=== PATIENT | male | born 1960 | race Caucasian/White ===

== ENCOUNTER 2016-10-26 14:50 | Inpatient (IN) | payer BC ==
[2016-10-26] MEDS ORDERED: fentaNYL (PF) 50 MCG/ML 2 ML AMP IV ONE (15:00)
[2016-10-26] MEDS ORDERED: MIDAZOLAM 2 MG/2 ML VIAL IVP ONE (15:00)
[2016-10-26] MEDS ORDERED: LIDOCAINE 2% INJ 20 MG/ML SQ ONE (15:03)
[2016-10-26] MEDS ORDERED: SODIUM CHLORIDE 0.9% 500 ML IV ONE (15:07)
[2016-10-26] MEDS ORDERED: PRASUGREL 10 MG TAB ONE (15:10)
[2016-10-26] MEDS ORDERED: PRASUGREL 10 MG TAB PO ONE (15:11)
[2016-10-26] MEDS ORDERED: TIROFIBAN BOLUS 12.5MG/250 ML BAG IV ONE (15:20)
[2016-10-26] MEDS: HEPARIN SODIUM 1,000 UNIT/ML VIAL IV ONE ×3 (15:21→16:04)
[2016-10-26] MEDS ORDERED: TIROFIBAN 12.5MG-250ML NS 250 ML IV ONE (15:22)
[2016-10-26] MEDS ORDERED: niCARdipine 25 MG/10 ML VIAL ONE (15:38)
[2016-10-26] MEDS ORDERED: SODIUM CHLORIDE 0.9% (PF) 10 ML VIAL ONE (15:38)
[2016-10-26] MEDS ORDERED: niCARdipine Syringe (1,000 mcg/10 mL) INTRACORON ONE (15:40)
[2016-10-26] MEDS: NITROGLYCERIN 1000MCG/10ML SYRINGE INTRACORON ONE ×2 (15:48→15:56)
[2016-10-26] MEDS ORDERED: HYDROmorphone 2 MG/ML 1 ML SYRINGE ONE (16:02)
[2016-10-26] MEDS ORDERED: HYDROmorphone 2 MG/ML 1 ML SYRINGE IVP ONE (16:04)
[2016-10-26] MEDS ORDERED: IOHEXOL 350 MG/ML 100 ML BOTTLE INJ ONE (16:06)
[2016-10-26] MEDS ORDERED: ZOLPIDEM 5 MG TAB PO PRN (16:13)
[2016-10-26] MEDS ORDERED: RX INFO: IV CONTRAST WAS GIVEN 1 EACH MISC MISCELLANE PRN (16:13)
[2016-10-26] MEDS ORDERED: NITROGLYCERIN SL TABS 0.4 MG TAB SUBLINGUAL PRN (16:13)
[2016-10-26] MEDS ORDERED: ATROPINE SULFATE 0.1 MG/ML 10ML SYRINGE IV PRN (16:13)
[2016-10-26] MEDS ORDERED: MAG HYDROX/AL HYDROX/SIMETH 30 ML CUP PO PRN (16:13)
[2016-10-26] MEDS ORDERED: TIROFIBAN 12.5MG-250ML NS 250 ML IV SCH (16:30)
[2016-10-26 16:53] LABS: Glucose,Whole Blood 261 mg/dL (75-99)
[2016-10-26] MEDS: SODIUM CHLORIDE 0.9% 1,000 ML IV SCH (17:13)
[2016-10-26] MEDS: METOPROLOL TARTRATE 25 MG TAB PO SCH (17:38)
[2016-10-26 18:17] LABS: Basophils # (A) 0.1 k/uL (0-0.2); Basophils % (A) 0 %; CH 29.3; CHCM 33.8; Eosinophils % (A) 0 %; HCT 35.8 % (39.0-53.0); HGB 11.5 gm/dL (13.0-17.5); Luc # (Auto) 0.19; Luc % (Auto) 1; Lymphocytes # (A) 3.1 k/uL (1.0-4.8); Lymphocytes % (A) 18 %; MCHC 32.1 g/dL (31.0-37.0); MCV 87.2 fL (80.0-100.0); Monocytes # (A) 0.8 k/uL (0-1.0); Monocytes % (A) 5 %; Neutrophils % (A) 76 %; RDW 13.2 % (11.5-15.5); WBC 17.2 k/uL (3.8-10.6)
[2016-10-26] MEDS: INSULIN LISPRO (humaLOG) 300 UNIT/3 ML VIAL SQ SCH ×2 (18:37→20:16)
[2016-10-26 18:44] LABS: Blood Urea Nitrogen 14 mg/dL (9-20); Carbon Dioxide 20 mmol/L (22-30); Chloride 102 mmol/L (98-107)
[2016-10-26 19:14] LABS: ALT 135 U/L (21-72); Alkaline Phosphatase 58 U/L (38-126); Anion Gap 14 mmol/L; Calcium 8.9 mg/dL (8.4-10.2); Glucose 243 mg/dL (74-99); Magnesium 1.7 mg/dL (1.6-2.3); Non-African American GFR(MDRD) >60 (>60 ml/min/1.73 sqM); Potassium 4.7 mmol/L (3.5-5.1); Sodium 136 mmol/L (137-145); Total Bilirubin 0.6 mg/dL (0.2-1.3); Total Protein 7.5 g/dL (6.3-8.2)
[2016-10-26 19:19] LABS: INR 1.1 (<1.1); Partial Thromboplastin Time 79.6 sec (22.0-30.0); Prothrombin Time 10.8 sec (9.0-12.0)
[2016-10-26 19:27] LABS: AST 750 U/L (17-59)
--- NOTE | 2016-10-26 20:12 | HP ---
DATE OF ADMISSION: 10/26/2016 PRESENTING COMPLAINT: Chest pain. HISTORY OF PRESENTING COMPLAINT: This is a 56-year-old patient of Dr. Villasenor whose chronic stable conditions include hypertension, hyperlipidemia, diabetes mellitus type 2. The patient was outside fixing a tire when he started having chest pressure going to both his shoulders, started perspiring, dizzy, lightheaded, tired, then did feeling like heaving his lunch and decided to drive himself to the ER. Patient was found to have an ST elevation myocardial infarction, transferred to cardiac cath lab technologist. Patient had a stent placed to the LAD. REVIEW OF SYSTEMS: CONSTITUTIONAL: Tired. HEENT: None. RESPIRATORY: Occasional wheezing. CARDIOVASCULAR: As above. GASTROINTESTINAL: None. GENITOURINARY: None. MUSCULOSKELETAL: None. DERMATOLOGIC: None. HEMATOLOGIC: None. LYMPHATIC: None. PSYCHIATRY: None. NEUROLOGICAL: None. Past history of diabetes mellitus type 2, hypertension, hyperlipidemia. PAST SURGICAL HISTORY: None. SOCIAL HISTORY: Smokes a pack a day. 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 . FAMILY HISTORY: Both brother and father have coronary artery disease. HOME MEDICATIONS: 1. Janumet , 1 tablet p.o. b.i.d. 2. DiaBeta 5 mg at supper. 3. Zocor 20 mg q.h.s. 4. Prinivil 10 mg at supper. ALLERGIES: None. On examination, temperature 97.8, pulse 89, respiration 18, blood pressure 103/49, pulse ox 99% on 3L. GENERAL APPEARANCE: Elderly male, lying in bed, comfortable. EYES: Pupils equal. Conjunctivae normal. HEENT: Oral cavity normal. NECK: JVD not raised. Mass not palpable. RESPIRATORY: Effort normal. LUNGS: Slightly decreased breath sounds. CARDIOVASCULAR: First and second sounds normal. No edema. ABDOMEN: Soft, nontender. Liver and spleen not palpable. LYMPHATIC: No lymph node palpable in neck or axillae. PSYCHIATRY: Alert and oriented x3. Mood and affect normal. NEUROLOGICAL: Pupils equal. Cranial nerves grossly intact. Power and sensation grossly intact. Patient has a pressure in the right groin. INVESTIGATIONS: White count 7.2, hemoglobin 9.5. Accu-Chek 261. ASSESSMENT: 1. Acute ST elevation myocardial infarction in the anterior wall with emergent cardiac catheterization and stent to the left anterior descending artery. 2. Diabetes mellitus type 2 on oral hypoglycemic. 3. Essential hypertension. 4. Hyperlipidemia. 5. Nicotine dependence. Patient is a smoker. 6. Probable emphysema on clinical examination. PLAN: Patient's metformin will be held because of the IV contrast. Patient is otherwise on Aggrastat and Effient. Accu-Cheks will be followed with sliding scale insulin. Patient will be given a nicotine patch. Patient also on Lipitor and aspirin. Care was discussed with patient and his . Questions were answered.
[2016-10-26] MEDS: MAGNESIUM SULFATE-D5W PMX 1 GM in DEXTROSE/WATER 1 100ML.BAG IVPB SCH ×2 (20:34→22:16)
[2016-10-26 20:35] LABS: Glucose,Whole Blood 229 mg/dL (75-99)
[2016-10-26] MEDS ORDERED: LISINOPRIL 2.5 MG TAB PO SCH (21:00)
[2016-10-26] MEDS ORDERED: INSULIN LISPRO (humaLOG) 300 UNIT/3 ML VIAL SQ SCH (21:00)
[2016-10-26] MEDS ORDERED: ATORVASTATIN 80 MG TAB PO SCH (21:00)
[2016-10-26] MEDS: NICOTINE 21MG/24HR PATCH TRANSDERM SCH (21:11)
[2016-10-26] MEDS ORDERED: HYDROmorphone 1 MG/ML 1 ML SYRINGE IVP PRN (21:47)
[2016-10-27] MEDS: traMADol 50 MG TAB PO PRN ×3 (01:13→13:46)
[2016-10-27 04:41] LABS: Basophils % (A) 0 %; CH 28.5; CHCM 32.9; Eosinophils % (A) 0 %; HCT 32.4 % (39.0-53.0); HDW 2.43; HGB 10.6 gm/dL (13.0-17.5); Luc # (Auto) 0.21; Luc % (Auto) 2; Lymphocytes # (A) 2.6 k/uL (1.0-4.8); Lymphocytes % (A) 20 %; MCH 28.6 pg (25.0-35.0); MCHC 32.7 g/dL (31.0-37.0); MCV 87.3 fL (80.0-100.0); Monocytes # (A) 0.8 k/uL (0-1.0); Monocytes % (A) 6 %; Neutrophils # (A) 9.5 k/uL (1.3-7.7); Neutrophils % (A) 72 %; RBC 3.71 m/uL (4.30-5.90); RDW 13.2 % (11.5-15.5); WBC 13.2 k/uL (3.8-10.6); WBC (Perox) 13.83
[2016-10-27 04:50] LABS: ALT 117 U/L (21-72); AST 574 U/L (17-59); Alkaline Phosphatase 47 U/L (38-126); Anion Gap 7 mmol/L; Blood Urea Nitrogen 15 mg/dL (9-20); Carbon Dioxide 21 mmol/L (22-30); Chloride 103 mmol/L (98-107); Cholesterol 149 mg/dL (<200); Glucose 257 mg/dL (74-99); HDL Cholesterol 47 mg/dL (40-60); Magnesium 2.2 mg/dL (1.6-2.3); Non-African American GFR(MDRD) >60 (>60 ml/min/1.73 sqM); Potassium 4.9 mmol/L (3.5-5.1); Sodium 131 mmol/L (137-145); Total Bilirubin 0.5 mg/dL (0.2-1.3); Total Protein 6.1 g/dL (6.3-8.2); Triglycerides 80 mg/dL (<150)
[2016-10-27] MEDS: SODIUM CHLORIDE 0.9% 1,000 ML IV SCH (07:04)
[2016-10-27 07:28] LABS: Glucose,Whole Blood 256 mg/dL (75-99)
[2016-10-27] MEDS: INSULIN LISPRO (humaLOG) 300 UNIT/3 ML VIAL SQ SCH ×4 (07:58→20:45)
[2016-10-27] MEDS: METOPROLOL TARTRATE 25 MG TAB PO SCH (08:24)
[2016-10-27 08:25] LABS: Hemoglobin A1C 8.9 % (4.2-6.1)
--- NOTE | 2016-10-27 08:32 | CONS ---
DATE OF CONSULTATION: Mr. Ashton is a 56-year-old gentleman who was transferred from [facility] because of the EKG suggestive of acute anterior wall myocardial infarction. Patient presented to the emergency room at [facility] with a complaint of chest discomfort and tightness for about 30 minutes prior to coming to the hospital. Patient denied any significant shortness of breath. He says both arms felt heavy. He did not have any nausea or vomiting. Patient denies any prior history of angina. Patient has a history of high blood pressure, diabetes as well as hyperlipidemia. He is moderately active physically. There is no family history of premature coronary artery disease. PAST MEDICAL HISTORY: No history of any major surgeries. REVIEW OF SYSTEMS: Unremarkable. There is no history of any gastrointestinal bleeding or any blood in the stool, black stool or ulcer. Patient's medications include Janumet, lisinopril and simvastatin. ALLERGIES: None known. Physical examination at present reveals a 56-year-old gentleman who is having mild discomfort. The heart rate is 80 per minute. Blood pressure is 136/85 mmHg. HEENT examination is negative. Neck is supple. There is no increase in jugular venous pressure. Both the carotid pulses are felt. There is no bruit. Chest is symmetrical. HEART: The PMI is not felt. First and second heart sounds are normal. There is no evidence of any murmur. Lungs are clinically clear to auscultation and percussion. Abdomen is soft. Liver and spleen are not enlarged. EXTREMITIES: Peripheral pulsations are 2+. EKG is suggestive of acute extensive anterolateral myocardial infarction. FINAL IMPRESSION: This patient has presented with acute anterolateral myocardial infarction. Patient has a history of hypertension, diabetes as well as hyperlipidemia and smoking. RECOMMENDATIONS: We will proceed with primary angioplasty. The procedure and risks were fully explained to the patient and he understands well.
--- NOTE | 2016-10-27 08:36 | CC ---
DATE OF SERVICE: PREOPERATIVE DIAGNOSIS: Acute anterolateral myocardial infarction. POSTOPERATIVE DIAGNOSIS: Acute anterolateral myocardial infarction. PROCEDURE: The right groin was prepped and draped in the usual manner and the skin was infiltrated with 2% Xylocaine. The patient was given intravenous sedation with Versed and fentanyl. Right femoral artery was entered using Seldinger technique. A #6 Lithuanian sheath was placed in, then selective coronary angiography was performed in multiple projections and left ventricular pressures were obtained. Total sedation time is 20 minutes. HEMODYNAMICS: Left ventricular end-diastolic pressure was 24 mmHg prior to angiography. No gradient was noted across the aortic valve. SELECTIVE CORONARY ANGIOGRAPHY: Left main coronary artery is normal and patent. LAD is a good caliber blood vessel and mid LAD after the origin of 2 septal perforators is subtotally occluded with SHAHRIAR 2 flow noted in the distal LAD and diagonal branch. There is evidence of filling defect suggestive of thrombus. Circumflex coronary artery is diffusely diseased. The first obtuse marginal branch has distally 90% stenosis. Right coronary artery also has mild diffuse areas and ectatic without any hemodynamically significant stenosis. FINAL IMPRESSION: This study shows subtotal occlusion of the mid LAD with a SHAHRIAR 2 flow. There is evidence significant thrombus in the mid LAD. The obtuse marginal branch has 90% stenosis. The right coronary artery is diffusely diseased and is mildly ectatic. RECOMMENDATIONS: We will proceed with stent to the LAD.
[2016-10-27] MEDS: ASPIRIN 81 MG CHEW PO SCH (08:39)
[2016-10-27] MEDS: LINAGLIPTIN 5 MG TABLET PO SCH (08:39)
[2016-10-27] MEDS: PRASUGREL 10 MG TAB PO SCH (08:39)
[2016-10-27] MEDS: NICOTINE 21MG/24HR PATCH TRANSDERM SCH (08:39)
--- NOTE | 2016-10-27 09:11 | PTCA ---
DATE OF SERVICE: 10/26/2016 PROCEDURE: PTCA and stenting of mid LAD performed in the setting of an acute ST elevation [place] as a primary procedure. PERFORMED BY: Dr. Meagan Rios. CLINICAL INFORMATION: Mr. Ross Ashton is a 56-year-old gentleman with history of type 2 diabetes mellitus, smoking, hypertension, hypercholesterolemia, presented with an acute anterior [place] to [facility], was transferred to [facility] evaluated by Dr. Dc Marlow who performed the cardiac cath which revealed total occlusion of mid LAD with a lot of thrombus and a sluggish flow in the diagonal and LAD beyond the blockage. He also had a significant lesion in the circumflex marginal but RCA was free of significant disease. RCA was free of significant disease and a bit ectatic. He was advised intervention of the LAD that was performed expeditiously. PROCEDURE NOTE: Existing 6 Amharic introducer in the right femoral artery was used to perform the procedure. I used a standard left Nany catheter to cannulate the left coronary artery. A BMW wire was used to cross the lesion. Wire was kept in the distal LAD. Another BMW wire was advanced and positioned in the major diagonal branch beyond blockage. Predilatation was performed using a 2.5 caliber, 15 mm long NC trek balloon. I then deployed a 2.75 caliber, 12 mm long Xience stent and the distal end of the stent was just before the vessel bifurcated into the diagonal and continued as LAD. Excellent angiographic result was achieved. Unfortunately, the distal LAD towards the apex was totally occluded and the diagonal was diffusely diseased and there was another secondary branch that went laterally. I advanced the diagonal wire into secondary branch, and tried to dilate the diagonal branch, which was running laterally. I also gave a distal diagonal branch inflation as well. I also dilated the distal LAD at the site of total occlusion with a 2.25 caliber, 12 mm long NC Euphora balloon. Will all the inflations, patient's chest pain was relieved completely. Flow was brisk, but the distal LAD towards the apex remained occluded and the flow in the diagonal was good but there diffuse disease in the distal branches. Patient was free of chest pain; however, unfortunately ST segment elevation in the V2 to V6 as well as and I and aVL persisted. Patient remained hemodynamically stable. A good angiographic result was achieved. He received 60 mg of Effient. He received Aggrastat bolus and infusion as per protocol. The sheath was taken out and a Perclose device used to secure hemostasis and because of some oozing FemoStop was applied and he was sent to the room in stable condition. Results were discussed with the patient and family.
--- NOTE | 2016-10-27 09:13 | LTR ---
October 26, 2016 RE: Ross Ashton [place] Dear Dr. Reeves: Thank you for the opportunity to participate in the care of Mr. Ross Ashton. This gentleman presented with acute anterior [place], underwent stenting of mid LAD, which was totally occluded with clot. He has diffuse disease in other vessels as well. Specifically, circumflex has a significant circumflex marginal lesion. I expect that he will have some damage but overall an excellent angiographic result was achieved without complication. Thank you for your referral. Please call for questions. Sincerely, RIA MELENDEZ MD
--- NOTE | 2016-10-27 11:18 | US ---
EXAMINATION TYPE: US carotid duplex BILAT DATE OF EXAM: 10/27/2016 10:50 AM COMPARISON: NONE CLINICAL HISTORY: carotid Bruit. Chest pain, SOB EXAM MEASUREMENTS: RIGHT: Peak Systolic Velocity (PSV) cm/sec ----- Right CCA: 110.4 ----- Right ICA: 132.3 ----- Right ECA: 138.7 ICA/CCA ratio: 1.2 RIGHT: End Diastole cm/sec ----- Right CCA: 26.0 ----- Right ICA: 37.0 ----- Right ECA: 14.4 LEFT: Peak Systolic Velocity (PSV) cm/sec ----- Left CCA: 116.1 ----- Left ICA: 145.7 ----- Left ECA: 108.2 ICA/CCA ratio: 1.3 LEFT: End Diastole cm/sec ----- Left CCA: 25.7 ----- Left ICA: 37.3 ----- Left ECA: 13.6 VERTEBRALS (direction of flow): Right Vertebral: Antegrade Left Vertebral: Antegrade TECHNOLOGIST IMPRESSION: Mild to moderate plaque noted bilateral bifurcations. Mildly increased [place] bilateral ICA's and right ECA Grayscale, color Doppler, spectral Doppler imaging performed of the carotid arteries. IMPRESSION: No hemodynamic significant stenosis of the proximal internal carotid arteries bilaterall y by Doppler criteria, and indirect measurement of carotid stenosis. Mild elevation of the proximal i nternal carotid artery velocities without elevation in the ICA to CCA ratio. Follow-up, consider hooper tid CTA as indicated. Criteria for Assigning % of Stenosis / Diameter reduction (Estimation based on the indirect measurements of the internal carotid artery velocities (ICA PSV). 1. Normal (no stenosis)=ICA PSV < 125 cm/s: ratio < 2.0: ICA EDV<40 cm/s. 2. Less than 50% stenosis=ICA PSV < 125 cm/s: ratio < 2.0: ICA EDV<40 cm/s. 3. 50 to 69% stenosis=ICA PSV of 125 to 230 cm/s: ration 2.0 ? 4.0: ICA EDV 40-100 cm/s. 4. Greater than 70% stenosis to near occlusion= ICA PSV > 230 cm/s: ratio > 4.0: ICA EDV > 100 cm/s. 5. Near occlusion= ICA PSV velocities may be low or undetectable: variable ratio and ICA EDV. 6. Total occlusion=unable to detect flow.
--- NOTE | 2016-10-27 11:53 | PN ---
This gentleman was admitted yesterday through the emergency room from [facility]. He presented with an acute anterior wall [place], underwent stenting of LAD with diffuse disease in both LAD and diagonal beyond the total occlusion, which was opened with an excellent result. He is comfortable, resting. Denies any chest pain, hemodynamically stable. The right groin is clean and dry. Blood pressure was somewhat low earlier today. Urine output is good. Physical exam revealed blood pressure 98/60, pulse rate is 70 per minute. S1, S2 heard normally. Bilateral carotid bruits are audible. Short systolic murmur at the left sternal border is audible. Lungs are clear. Abdomen and lower extremity exam is unchanged. Right groin is clean and dry with a good pulse. IMPRESSION: 1. Acute anterior wall myocardial infarction status post PCI doing well, hemodynamically stable. 2. History of hypertension. 3. Type 2 diabetes mellitus. 4. History of hypercholesterolemia. RECOMMENDATIONS: I am recommending that we cut down the lisinopril dose to 2.5 mg at bedtime, obtain an echocardiogram and carotid Doppler tomorrow, his liver functions are elevated, has history of hepatitis C, will seek GI input. Will decrease the dose of beta nixon, cut down the dose of Lipitor in the light of elevated liver functions, increase activity and move him to telemetry tomorrow. Echo, carotid Doppler, GI evaluation, increase activity, reduction in dose of beta nixon, Lipitor and lisinopril was advised. Discussed with the patient and at length.
[2016-10-27 12:06] LABS: Glucose,Whole Blood 320 mg/dL (75-99)
[2016-10-27] MEDS: METOPROLOL TARTRATE 12.5 MG TAB PO SCH (13:42)
[2016-10-27] MEDS ORDERED: PRASUGREL 10 MG TAB PO SCH (16:15)
[2016-10-27] MEDS: glipiZIDE 5 MG TAB PO SCH (17:26)
[2016-10-27 17:29] LABS: Glucose,Whole Blood 262 mg/dL (75-99)
[2016-10-27 20:45] LABS: Glucose,Whole Blood 226 mg/dL (75-99)
[2016-10-27] MEDS: LISINOPRIL 2.5 MG TAB PO SCH (20:45)
[2016-10-27] MEDS: ATORVASTATIN 40 MG TAB PO SCH (20:45)
[2016-10-28 04:46] LABS: Basophils # (A) 0.1 k/uL (0-0.2); Basophils % (A) 1 %; CH 28.8; CHCM 32.7; Eosinophils # (A) 0.1 k/uL (0-0.7); Eosinophils % (A) 1 %; HCT 30.3 % (39.0-53.0); HDW 2.46; HGB 9.7 gm/dL (13.0-17.5); Luc # (Auto) 0.23; Luc % (Auto) 2; Lymphocytes # (A) 3.6 k/uL (1.0-4.8); Lymphocytes % (A) 31 %; MCH 28.5 pg (25.0-35.0); MCHC 32.1 g/dL (31.0-37.0); MCV 88.6 fL (80.0-100.0); Mean Platelet Volume 8.2; Monocytes # (A) 0.9 k/uL (0-1.0); Monocytes % (A) 7 %; Neutrophils # (A) 6.7 k/uL (1.3-7.7); Neutrophils % (A) 58 %; RBC 3.42 m/uL (4.30-5.90); RDW 13.3 % (11.5-15.5); WBC 11.6 k/uL (3.8-10.6); WBC (Perox) 11.45
[2016-10-28 04:57] LABS: ALT 85 U/L (21-72); AST 200 U/L (17-59); Alkaline Phosphatase 40 U/L (38-126); Anion Gap 7 mmol/L; Blood Urea Nitrogen 13 mg/dL (9-20); Calcium 8.5 mg/dL (8.4-10.2); Carbon Dioxide 25 mmol/L (22-30); Chloride 106 mmol/L (98-107); Glucose 156 mg/dL (74-99); Magnesium 2.1 mg/dL (1.6-2.3); Non-African American GFR(MDRD) >60 (>60 ml/min/1.73 sqM); Potassium 5.2 mmol/L (3.5-5.1); Sodium 138 mmol/L (137-145); Total Bilirubin 0.5 mg/dL (0.2-1.3)
[2016-10-28 06:38] LABS: Glucose,Whole Blood 201 mg/dL (75-99)
[2016-10-28] MEDS: glipiZIDE 5 MG TAB PO SCH (06:57)
[2016-10-28] MEDS: INSULIN LISPRO (humaLOG) 300 UNIT/3 ML VIAL SQ SCH ×4 (06:57→22:50)
[2016-10-28] MEDS ORDERED: metFORMIN 500 MG TAB PO SCH ×2 (07:30→17:30)
[2016-10-28] MEDS: NICOTINE 21MG/24HR PATCH TRANSDERM SCH ×2 (08:23→08:26)
[2016-10-28] MEDS: ASPIRIN 81 MG CHEW PO SCH (08:26)
[2016-10-28] MEDS: LINAGLIPTIN 5 MG TABLET PO SCH (08:27)
[2016-10-28] MEDS: PRASUGREL 10 MG TAB PO SCH (08:28)
--- NOTE | 2016-10-28 10:04 | ECHOF ---
Referral Reason:post stemi MEASUREMENTS -------- HEIGHT: 152.4 cm WEIGHT: 69.0 kg BP: 90/67 IVSd: 1.2 cm (0.6 - 1.1) LVIDd: 4.5 cm (3.9 - 5.3) LVPWd: 1.3 cm (0.6 - 1.1) IVSs: 1.7 cm LVIDs: 3.3 cm LVPWs: 1.6 cm LA Diam: 2.5 cm (2.7 - 3.8) LAESV Index (A-L): 26.88 ml/m Ao Diam: 3.1 cm (2.0 - 3.7) AV Cusp: 1.6 cm (1.5 - 2.6) LA Diam: 3.2 cm (2.7 - 3.8) MV EXCURSION: 26.725 mm (> 18.000) MV EF SLOPE: 87 mm/s (70 - 150) EPSS: 0.2 cm RAP: 5.00 mmHg RVSP: 31.89 mmHg FINDINGS -------- Sinus rhythm. This was a technically adequate study. There is mild concentric left ventricular hypertrophy. Overall left ventricular systolic function is moderately impaired with, an EF between 35 - 40 %. Apical lateral LV wall motion is hypokinetic. Anterseptal Hypokinesis [place] Hypokinesis. Distal Septal Hypokinesis. The right ventricle is normal in size. Normal LA size by volume 22+/-6 ml/m2. The right atrial size is normal. There is mild aortic valve sclerosis. There is no evidence of aortic regurgitation. Mild mitral annular calcification present. Mild mitral regurgitation is present. Mild tricuspid regurgitation present. There is no evidence of pulmonary hypertension. The right ventricular systolic pressure, as measured by Doppler, is 31.89mmHg. There is no pulmonic regurgitation present. The aortic root size is normal. There is no pericardial effusion. CONCLUSIONS -------- 1. There is mild concentric left ventricular hypertrophy. 2. Mild mitral regurgitation is present. 3. Mild tricuspid regurgitation present. 4. There is no evidence of pulmonary hypertension. 5. The right ventricular systolic pressure, as measured by Doppler, is 31.89mmHg. 6. Overall left ventricular systolic function is moderately impaired with, an EF between 35 - 40 %. 7. Apical lateral LV wall motion is hypokinetic. 8. Anterseptal Hypokinesis 9. [place] Hypokinesis. 10. Distal Septal Hypokinesis. 11. Normal LA size by volume 22+/-6 ml/m2. 12. There is mild aortic valve sclerosis. 13. Mild mitral annular calcification present. PAPER BAG PRESS OPERATOR: Oneyda Dorsey RDCS
--- NOTE | 2016-10-28 11:15 | PN ---
DATE OF SERVICE: 10/27/2016 PRESENTING COMPLAINT: Acute [place]. INTERVAL HISTORY: This patient presented with acute ST elevation myocardial infarction with intervention of the LAD. Has been out of bed. Had very slight chest discomfort. Discussed with Dr. Meagan Rios. The patient had a good intervention from intervention standpoint. Review of systems done for constitutional, cardiovascular, GI, pulmonary; relevant findings as above. Current medications are reviewed. On examination, temperature 98.1, pulse 84, respiration 23, blood pressure 113/58, pulse ox 99% on room air. GENERAL APPEARANCE: Lying in bed, comfortable. EYES: Pupils equal. Affect normal JVD not raised. Mass not palpable. RESPIRATORY: Effort normal. LUNGS: Diminished breath sounds. CARDIOVASCULAR: First and second sounds normal. No edema. ABDOMEN: Soft, nontender. Liver and spleen not palpable. PSYCHIATRY: Alert and oriented or 3. Mood and affect normal. INVESTIGATIONS: White count 13.2, hemoglobin 10.6, potassium 4.9, sodium 131. Accu-Cheks 257 and 256. Carotid Doppler, no critical stenosis ASSESSMENT: 1. Acute ST elevation myocardial infarction of the anterior wall with emergent cardiac catheterization with stent to the LAD. 2. Diabetes mellitus type 2, on oral hypoglycemic, uncontrolled. 3. Essential hypertension. 4. Hyperlipidemia. 5. Nicotine dependence. Patient is a smoker. 6. Probable emphysema on clinical examination. PLAN: Checked with the nurse, oral hypoglycemic was not started, will be started today. Metformin can be started tomorrow. In the meantime will keep the patient on sliding scale. Discussed with the patient.
[2016-10-28 11:38] LABS: Glucose,Whole Blood 195 mg/dL (75-99)
[2016-10-28] MEDS: METOPROLOL TARTRATE 12.5 MG TAB PO SCH ×2 (12:15→12:28)
[2016-10-28] MEDS: LISINOPRIL 2.5 MG TAB PO SCH (12:35)
[2016-10-28] MEDS: SPIRONOLACTONE 25 MG TAB PO SCH (13:55)
--- NOTE | 2016-10-28 14:27 | PN ---
Mr. Ashton is a 56-year-old male who presented with an acute anterior myocardial infarction, underwent percutaneous revascularization by Dr. Meagan Rios. He is doing well this morning. He is denying any chest pain. His breathing has been stable. He denies any dizziness. He still had episode of hypotension. He had an echocardiogram that revealed an ejection fraction of 35% to 40% with segmental wall motion abnormality. He continues to be on metoprolol tartrate 12.5 mg daily, aspirin once a day, Effient 10 mg daily, Lipitor 40 mg daily, Tradjenta, glipizide 5 mg twice a day, metformin 1000 mg twice a day, tramadol. PHYSICAL EXAMINATION: Blood pressure running in the high 90s to low 100s with a heart rate in the 70s. LUNGS: No rales. HEART: Regular rate and rhythm. S1, S2, no S3, no rub. ABDOMEN: Soft, nontender. EXTREMITIES: No edema. Lab data revealed BUN and creatinine 13 and 0.9, AST of 200, ALT of 85. Hemoglobin of 9.7. IMPRESSION: 1. Status post anterior myocardial infarction and stenting of the left anterior descending artery with severe cardiomyopathy. 2. Episode of hypertension. 3. Elevated liver function tests, most likely congestion, improving. RECOMMENDATION: From the cardiac standpoint, will continue present therapy. Should be able to be transferred to the telemetry floor. I will start Aldactone to his regimen and depending his pressure, the dose of beta nixon and GILMAR inhibitor can be further adjusted. Depending on his progress, further recommendation will be made.
[2016-10-28 17:08] LABS: Glucose,Whole Blood 243 mg/dL (75-99)
[2016-10-28] MEDS: JANUMET PO SCH (17:44)
[2016-10-28] MEDS: GLYBURIDE 5 MG TAB PO SCH (17:44)
[2016-10-28 22:32] LABS: Glucose,Whole Blood 188 mg/dL (75-99)
[2016-10-28] MEDS: ATORVASTATIN 40 MG TAB PO SCH (22:51)
[2016-10-29 06:48] LABS: ALT 72 U/L (21-72); AST 100 U/L (17-59); Alkaline Phosphatase 44 U/L (38-126); Anion Gap 9 mmol/L; Blood Urea Nitrogen 16 mg/dL (9-20); Calcium 8.6 mg/dL (8.4-10.2); Carbon Dioxide 23 mmol/L (22-30); Chloride 107 mmol/L (98-107); Glucose 182 mg/dL (74-99); Non-African American GFR(MDRD) >60 (>60 ml/min/1.73 sqM); Potassium 4.8 mmol/L (3.5-5.1); Sodium 139 mmol/L (137-145); Total Bilirubin 0.5 mg/dL (0.2-1.3); Total Protein 6.4 g/dL (6.3-8.2)
[2016-10-29 06:49] LABS: Basophils # (A) 0.1 k/uL (0-0.2); Basophils % (A) 0 %; CH 29.1; CHCM 32.8; Eosinophils # (A) 0.1 k/uL (0-0.7); Eosinophils % (A) 1 %; HCT 31.3 % (39.0-53.0); HDW 2.49; Luc # (Auto) 0.22; Luc % (Auto) 2; Lymphocytes % (A) 26 %; MCH 28.5 pg (25.0-35.0); MCV 89.2 fL (80.0-100.0); Mean Platelet Volume 8.3; Monocytes # (A) 0.8 k/uL (0-1.0); Monocytes % (A) 7 %; Neutrophils # (A) 7.2 k/uL (1.3-7.7); Neutrophils % (A) 64 %; RBC 3.51 m/uL (4.30-5.90); RDW 13.4 % (11.5-15.5); WBC 11.4 k/uL (3.8-10.6); WBC (Perox) 11.09
[2016-10-29] MEDS: GLYBURIDE 5 MG TAB PO SCH ×2 (07:02→16:49)
[2016-10-29] MEDS: JANUMET PO SCH ×2 (07:03→16:49)
[2016-10-29] MEDS: INSULIN LISPRO (humaLOG) 300 UNIT/3 ML VIAL SQ SCH ×2 (07:03→12:54)
--- NOTE | 2016-10-29 07:38 | PN ---
DATE OF SERVICE: 10/28/2016 PRESENTING COMPLAINT: Acute [place]. INTERVAL HISTORY: Patient is status post acute [place] with LAD intervention. Has been up and about in the ICU. Saw this patient this morning. No further chest pain. Review of systems done for constitutional, cardiovascular, GI, pulmonary; relevant findings as above. Current medications are reviewed. On examination, temperature 98.2, pulse 77, respirations 18, blood pressure 99/56, pulse ox 99% on room air. GENERAL APPEARANCE: Sitting up in a chair, comfortable. EYES: Pupils equal. Conjunctivae normal. NECK: JVD not raised. Mass not palpable. RESPIRATORY: Effort normal. LUNGS: Diminished breath sounds. CARDIOVASCULAR: First and second sounds normal. No edema. ABDOMEN: Soft, nontender. Liver and spleen not palpable. PSYCHIATRY: Alert and oriented x3. Mood and affect normal. INVESTIGATIONS: White count 11.6, hemoglobin 9.7. Potassium 5.0. BUN and creatinine are normal. Patient's LFTs were up 750 and 135 now down to 200 and 85. A 2-D echocardiogram shows an EF of 35% to 40% with multiple wall hypokinesis. ASSESSMENT: 1. Acute ST elevation myocardial infarction anterior wall with urgent cardiac cath with stent of the LAD. 2. Diabetes mellitus type 2 on oral hypoglycemic, uncontrolled. 3. Essential hypertension, history of. 4. Hyperlipidemia. 5. Nicotine dependence. Patient is a smoker. 6. Emphysema on clinical examination. 7. Acute hepatitis. This could be ischemic hepatitis and/or patient had Lipitor was given. 8. Ischemic cardiomyopathy from underlying coronary artery disease. PLAN: Medications were adjusted by Dr. Loya today. Patient is on Lipitor. Given that the Liver function tests are actually improving maybe this was all ischemic. Will check LFTs again tomorrow. Aldactone has been added. Patient should be able to go back on metformin. ( ) doing better.
[2016-10-29] MEDS: PRASUGREL 10 MG TAB PO SCH (08:14)
[2016-10-29] MEDS: METOPROLOL TARTRATE 12.5 MG TAB PO SCH (08:14)
[2016-10-29] MEDS: SPIRONOLACTONE 25 MG TAB PO SCH (08:14)
[2016-10-29] MEDS: NICOTINE 21MG/24HR PATCH TRANSDERM SCH (08:15)
[2016-10-29] MEDS: ASPIRIN 81 MG CHEW PO SCH (08:15)
[2016-10-29 11:13] VITALS: BMI 21.0
--- NOTE | 2016-10-29 11:26 | P.CONS ---
History of Present Illness - Reason for Consult Consult date: 10/29/16 Elevated liver enzymes Requesting physician: Javed Rios - History of Present Illness 56-year-old gentleman patient of Dr. Villasenor, [place], [place], with a past medical history of diabetes mellitus, hepatitis C, and hypertension. Admitted with acute chest pain secondary anterior wall [place] status post heart catheterization with stenting of the left anterior descending artery with severe cardiomyopathy. Consultation requested for elevated liver enzymes. Admission total bilirubin 0.6. AST 750. ALT 135. Alkaline phosphate 58. Currently total bilirubin 0.5. AST 100. ALT 72. Alkaline phosphatase 44. No history of alcoholism. Denies abdominal pain. No reports of jaundice, acholic stools, or changes in the color of his urine. Systolic blood pressure 90s-110s. Patient states he follows his primary care physician a regular basis for 6 months-yearly hepatitis C testing with abdominal imaging as necessary along with alpha-fetoprotein level checks. He received interferon therapy more than 15 years ago and according to him last hepatitis C quantitative serology measurement was not measurable. Review of Systems Constitutional: Denies fever, chills, sweats, weight gain, or loss. HEENT: Negative for migraines, blurred vision or loss, earaches, drainage, tinnitus, oral mucosal lesions, dysphagia, or odynophagia. Cardiac: Retention. Negative for chest pain, arrhythmias, or palpitation. Respiratory: Nicotine cigarette dependency. Negative for shortness of breath, hemoptysis, cough, or sputum production. Gastrointestinal: See HPI for pertinent findings. Genitourinary: Negative for hematuria, urgency, frequency, polyuria, dysuria, or penile discharge. Musculoskeletal: Negative for muscle aches, swelling, arthritis, and arthralgias. Neurologic: Negative for stroke or TIA. Endocrine: Diabetes mellitus. Negative for thyroid problems. Skin: Negative for rash or itching. Psychiatric: Negative history for depression and anxiety All systems: negative (See HPI) Past Medical History Past Medical History: Chest Pain / Angina, Diabetes Mellitus, Hypertension Additional Past Medical History / Comment(s): History of Hepatitis C 20 years ago, treated with Interferon, Dr Villasenor checks every 6 months. Has been negative for Hepatitis C History of Any Multi-Drug Resistant Organisms: None Reported Past Surgical History: Orthopedic Surgery Additional Past Surgical History / Comment(s): torn meniscus repair in right knee Smoking Status: Current every day smoker Past Alcohol Use History: None Reported Past Drug Use History: None Reported - Past Family History Father Family Medical History: Chest Pain / Angina, Coronary Artery Disease (CAD), Myocardial Infarction ([place]) Additional Family Medical History / Comment(s): Father had colon cancer and of liver cancer Mother Family Medical History: CVA/TIA, Diabetes Mellitus, Myocardial Infarction ([place]) Additional Family Medical History / Comment(s): hip fracture Brother(s) Additional Family Medical History / Comment(s): middle brother of testicular cancer at age of 35. oldest brother has 4 cardiac stents Medications and Allergies Home Medications Medication Instructions Recorded Confirmed Type Lisinopril [Prinivil] 10 mg PO W/SUPPER 10/26/16 10/26/16 History Simvastatin [Zocor] 20 mg PO HS 10/26/16 10/26/16 History glyBURIDE [Diabeta] 5 mg PO W/SUPPER 10/26/16 10/26/16 History sitaGLIPtin PHOS/metFORMIN HCL 1 tab PO BID 10/26/16 10/26/16 History [Janumet 50-1,000 mg Tablet] Allergies Allergy/AdvReac Type Severity Reaction Status Date / Time No Known Allergies Allergy Verified 10/26/16 17:21 Physical Exam Vitals: Vital Signs Temp Pulse Pulse Pulse Resp BP BP 10/29/16 08:00 99 F 74 16 110/67 10/29/16 04:00 96.3 F L 83 17 106/58 10/29/16 00:00 98.3 F 85 85 17 111/60 10/28/16 20:00 98.0 F 89 17 110/59 10/28/16 18:34 83 17 115/57 10/28/16 18:00 81 20 106/63 10/28/16 17:30 77 21 106/63 10/28/16 17:00 80 20 111/63 10/28/16 16:30 83 16 111/63 10/28/16 16:00 98.2 F 82 20 104/58 10/28/16 15:00 79 23 99/60 10/28/16 14:00 82 22 100/58 10/28/16 13:30 73 12 100/58 10/28/16 13:00 70 12 93/54 10/28/16 12:00 98.2 F 77 18 99/56 Pulse Ox 10/29/16 08:00 98 10/29/16 04:00 99 10/29/16 00:00 98 10/28/16 20:00 98 10/28/16 18:34 98 10/28/16 18:00 98 10/28/16 17:30 98 10/28/16 17:00 98 10/28/16 16:30 98 10/28/16 16:00 97 10/28/16 15:00 97 10/28/16 14:00 99 10/28/16 13:30 99 10/28/16 13:00 99 10/28/16 12:00 99 Intake and Output 10/28/16 10/29/16 10/29/16 22:59 06:59 14:59 Output Total 0 Balance 0 Output: Urine 0 Other: Voiding Method Urinal Urinal # Voids 1 1 # Bowel Movements 1 Weight 69.1 kg 66.5 kg 66.5 kg Patient Weight 10/30/16 06:59 Weight 66.5 kg General appearance: The patient is alert, oriented, in no acute distress. HET: Head is normocephalic and atraumatic. Pupils are equal and reactive. Oropharynx is clear without lesions. Neck: Supple without lymphadenopathy. Trachea midline. Heart: S1 S2. Regular rate and rhythm. Lungs: No crackles or wheezes are heard. Abdomen: Soft, nontender, nondistended with bowel sounds. No peritoneal signs. No palpable organomegaly or masses. Extremities: Normal skin color and turgor. No cyanosis, rash, ulceration, clubbing, or edema. Radial and pedal pulses are 2/4 bilaterally. Neurological: No focal deficits. Strength and sensation are grossly intact. Results CBC & Chem 7: 10/29/16 05:56 10/29/16 05:54 Labs: Abnormal Lab Results - Last 24 Hours (Table) 10/28/16 10/28/16 10/28/16 Range/Units 11:23 17:05 22:11 WBC (3.8-10.6) k/uL RBC (4.30-5.90) m/uL Hgb (13.0-17.5) gm/dL Hct (39.0-53.0) % Glucose (74-99) mg/dL POC Glucose (mg/dL) 195 H 243 H 188 H (75-99) mg/dL AST (17-59) U/L 10/29/16 10/29/16 Range/Units 05:54 05:56 WBC 11.4 H (3.8-10.6) k/uL RBC 3.51 L (4.30-5.90) m/uL Hgb 10.0 L (13.0-17.5) gm/dL Hct 31.3 L (39.0-53.0) % Glucose 182 H (74-99) mg/dL POC Glucose (mg/dL) (75-99) mg/dL AST 100 H (17-59) U/L Assessment and Plan (1) Elevated liver enzymes Narrative/Plan: 56-year-old gentleman with a history of hepatitis C with interferon therapy presents with acute [place], severe cardiomyopathy status post heart catheterization with PCI stent with elevated transaminases with clinical improvement suspect elevated transaminases secondary to component of passive venous congestion possible ischemic component. Status: Acute (2) Hepatitis C Status: Resolved (3) STEMI (ST elevation myocardial infarction) Status: Acute Plan: 1. Discharge per cardiology and medicine. 2. Patient stated he would like to follow with his primary care physician for ongoing evaluation of his hepatitis C screening. GI follow-up visit was offered if he chooses to do so. Continue supportive measures. We'll follow as needed. Thank you for this kind referral and the opportunity to participate in the care of your patient. This consultation was discussed with Dr. Amador. The impression and plan of care have been directed as dictated.
[2016-10-29] MEDS ORDERED: METOPROLOL SUCCINATE (ER) 25 MG TAB.ER.24H PO SCH (12:00)
--- NOTE | 2016-10-29 15:20 | P.PN ---
Subjective Principal diagnosis: STEMI This is a 56-year-old gentleman who is status post anterior wall myocardial infarction, he underwent angioplasty with stent placement of an LAD, patient was seen and examined this morning, feels well, denies any chest pain or difficulty in breathing. Echocardiogram with Doppler study performed revealed an ejection fraction of 35-40%. Blood pressure 106/60 with a heart rate in the 70s. We will increase the beta nixon to 25 mg daily today. Patient may be discharged home today. A follow-up appointment will be made in the office in one week. Objective - Vital Signs Vital signs: Vital Signs Temp 98.2 F 10/29/16 12:00 Pulse 75 10/29/16 12:00 Resp 16 10/29/16 12:00 BP 106/61 10/29/16 12:00 Pulse Ox 99 10/29/16 12:00 Intake & Output 10/28/16 10/29/16 10/29/16 18:59 06:59 18:59 Intake Total 240 Output Total 0 0 Balance 0 0 240 Weight 66.5 kg 66.5 kg Intake: Oral 240 Output: Urine 0 0 Other: Voiding Method Urinal Urinal # Voids 1 1 1 # Bowel Movements 1 - Exam PHYSICAL EXAMINATION: HEENT: Head is atraumatic, normocephalic. Pupils equal, round. Neck is supple. There is no elevated jugular venous pressure. HEART EXAMINATION: Heart S1, S2 normal. No murmur or gallop heard. CHEST EXAMINATION: Lungs are clear to auscultation and precussion. No chest wall tenderness is noted on palpation or with deep breathing. ABDOMEN: Soft, nontender. Bowel sounds are heard. No organomegaly noted. EXTREMITIES: 2+ peripheral pulses with no evidence of peripheral edema and no calf tenderness noted. NEUROLOGIC patient is awake, alert and oriented -3. . - Labs CBC & Chem 7: 10/29/16 05:56 10/29/16 05:54 Labs: Abnormal Lab Results - Last 24 Hours (Table) 10/28/16 10/28/16 10/29/16 Range/Units 17:05 22:11 05:54 WBC (3.8-10.6) k/uL RBC (4.30-5.90) m/uL Hgb (13.0-17.5) gm/dL Hct (39.0-53.0) % Glucose 182 H (74-99) mg/dL POC Glucose (mg/dL) 243 H 188 H (75-99) mg/dL AST 100 H (17-59) U/L 10/29/16 Range/Units 05:56 WBC 11.4 H (3.8-10.6) k/uL RBC 3.51 L (4.30-5.90) m/uL Hgb 10.0 L (13.0-17.5) gm/dL Hct 31.3 L (39.0-53.0) % Glucose (74-99) mg/dL POC Glucose (mg/dL) (75-99) mg/dL AST (17-59) U/L Assessment and Plan (1) ST elevation myocardial infarction (STEMI) of anterior wall Status: Acute (2) Presence of stent in LAD coronary artery Status: Acute (3) HTN (hypertension) Status: Acute (4) Hyperlipemia Status: Acute Plan: From cardiology's perspective, patient may be able to be discharged home today. We'll make him a follow-up appointment with Dr. VC Marlow in the office post discharge. Patient will be discharged home on aspirin 81 mg daily, Lipitor 40 mg daily, lisinopril 2-1/2 mg daily, metoprolol tartrate 25 mg daily, nicotine patch once daily, Effient 10 mg daily, Aldactone 25 mg daily, and sublingual nitroglycerin as needed for chest pain. DNP note has been reviewed, I agree with a documented findings and plan of care. Patient was seen and examined.
[2016-10-29 16:54] VITALS: BP 123/62; PULSE 77; RESP 18; TEMP 97.1
--- NOTE | 2016-10-30 21:26 | DS ---
DATE OF ADMISSION: 10/26/2016 DATE OF DISCHARGE: 10/29/2016 FINAL DIAGNOSES: 1. Acute ST elevation myocardial infarction, anterior wall, with urgent cardiac catheterization with stent to the left anterior descending artery. 2. Diabetes mellitus type 2 on oral hypoglycemic. 3. Essential hypertension. 4. Hyperlipidemia. 5. Nicotine dependence. 6. Emphysema on clinical examination. 7. Acute hepatitis. This could be ischemic hepatitis. 8. Ischemic cardiomyopathy from underlying coronary artery disease. HOSPITAL COURSE: This patient had acute ST elevation myocardial infarction. Patient was found to have diffuse disease. Stent to the LAD was done. Two-D echocardiogram showed an EF of 35% to 40%. Patient also had a carotid Doppler done that did not show any significant stenosis. Patient's LDL was 86. On day of discharge, up and about. No chest pain or shortness of breath. On exam, LUNGS: Slightly decreased breath sounds. CARDIOVASCULAR: First and second sounds normal. CONSULTATIONS: Dr. Meagan Rios from cardiology. DISCHARGE MEDICATIONS: 1. DiaBeta 5 mg p.o. with supper. 2. Janumet , 1 tablet p.o. b.i.d. 3. Aspirin 81 mg daily. 4. Lipitor 40 mg q.h.s. 5. Zestril 2.5 p.o. q.h.s. 6. Toprol-XL 25 mg a day. 7. Nicotine patch 21. 8. Nitrostat 0.4 sublingual q.5 p.r.n. 9. Effient 10 mg p.o. daily. 10. Aldactone 25 mg p.o. daily. Follow up with Dr. Villasenor in 1 week. Follow up with Dr. Dc Marlow in 1 week. Care was discussed with the patient in detail.
== END 2016-10-29 17:43 | disposition home or self-care (01) | DRG 247 ==
LOC: 6ICU 14:54 → 6SEL 10-28 18:36
PROVIDERS: ADMIT Hospitalist; ATTEND Hospitalist
PROC: 02703ZZ Dilation of Coronary Artery, One Artery, Percutaneous Approach (ICD-10-PCS; 2016-10-26)
PROC: B2111ZZ Fluoroscopy of Multiple Coronary Arteries using Low Osmolar Contrast (ICD-10-PCS; principal; 2016-10-26 14:51)
PROC: 027034Z Dilation of Coronary Artery, One Artery with Drug-eluting Intraluminal Device, Percutaneous Approach (ICD-10-PCS; 2016-10-26 14:51)
DX: I21.09 ST elevation (STEMI) myocardial infarction involving other coronary artery of anterior wall (principal); I10 Essential (primary) hypertension; B17.9 Acute viral hepatitis, unspecified; I25.5 Ischemic cardiomyopathy; E11.9 Type 2 diabetes mellitus without complications; E78.5 Hyperlipidemia, unspecified; F17.210 Nicotine dependence, cigarettes, uncomplicated; Z86.19 Personal history of other infectious and parasitic diseases; Z79.84 Long term (current) use of oral hypoglycemic drugs; Z79.899 Other long term (current) drug therapy; Z82.49 Family history of ischemic heart disease and other diseases of the circulatory system; Z83.3 Family history of diabetes mellitus; I25.10 Atherosclerotic heart disease of native coronary artery without angina pectoris; J43.9 Emphysema, unspecified; E78.00 Pure hypercholesterolemia, unspecified
CPT/HCPCS: 80053; 80061; 83036; 83735; 84484; 85025; 85347; 85610; 85730; 93306; 93458; 93880

== ENCOUNTER 2016-11-15 06:16 | Inpatient (IN) | payer BC ==
[2016-11-15] MEDS ORDERED: NITROGLYCERIN OINT 1 INCH/GM PACKET TOPICAL STA (06:19)
--- NOTE | 2016-11-15 06:23 | ED ---
General Adult HPI - General Source: RN notes reviewed <Terrence Wen - Last Filed: 11/15/16 06:26> <Dustin Mary - Last Filed: 11/15/16 09:13> - General Stated complaint: CHEST PAIN Time Seen by Provider: 11/15/16 06:16 - History of Present Illness Initial comments: This is a 56-year-old male who has a past medical history significant for stent placement a couple weeks ago. Patient is supposed to have some further stenting done in the near future. Patient states he just quit smoking recently he does have high blood pressure high cholesterol as well as diabetes and a strong family history. Patient states he had some chest pain earlier in the evening which she describes as tightness. Patient states similar to the chest pain he had when he had his heart attack but is not as severe. Patient states took a nitroglycerin took the chest pain away. Patient states the pain came back later took 2 nitros the pain did not go away so he called EMS. In the emesis patient received an aspirin 3 nitroglycerin and now he states the pain is very minimal. Patient denies any shortness of breath. Patient denies any radiation of the pain. Patient denies any diaphoresis. Patient denies any nausea. Patient denies abdominal pain patient denies any recent fever or chills or cough. Patient denies any lightheadedness dizziness or near-syncopal episode. (Terrence Wen) - Related Data Home Medications Medication Instructions Recorded Confirmed glyBURIDE [Diabeta] 5 mg PO W/SUPPER 10/26/16 11/15/16 sitaGLIPtin PHOS/metFORMIN HCL 1 tab PO BID 10/26/16 11/15/16 [Janumet 50-1,000 mg Tablet] Previous Rx's Medication Instructions Recorded Aspirin 81 mg PO DAILY #30 chew 10/29/16 Atorvastatin [Lipitor] 40 mg PO HS #30 tab 10/29/16 Lisinopril [Zestril] 2.5 mg PO HS #30 tab 10/29/16 Metoprolol Succinate (ER) [Toprol 25 mg PO DAILY #30 tab.er.24h 10/29/16 XL] Nicotine 21Mg/24Hr Patch [Habitrol] 1 patch TRANSDERM DAILY #30 patch 10/29/16 Nitroglycerin Sl Tabs [Nitrostat] 0.4 mg SUBLINGUAL Q5M PRN #25 tab 10/29/16 Prasugrel [Effient] 10 mg PO DAILY #30 tab 10/29/16 Spironolactone [Aldactone] 25 mg PO DAILY #30 tab 10/29/16 Allergies Allergy/AdvReac Type Severity Reaction Status Date / Time No Known Allergies Allergy Verified 11/15/16 08:00 Review of Systems ROS Other: All systems not noted in ROS Statement are negative. <Terrence Wen - Last Filed: 11/15/16 06:26> ROS Other: All systems not noted in ROS Statement are negative. <Dustin Mary - Last Filed: 11/15/16 09:13> ROS Statement: Those systems with pertinent positive or pertinent negative responses have been documented in the HPI. Past Medical History Past Medical History: Chest Pain / Angina, Diabetes Mellitus, Hypertension Additional Past Medical History / Comment(s): History of Hepatitis C 20 years ago, treated with Interferon, Dr Villasenor checks every 6 months. Has been negative for Hepatitis C History of Any Multi-Drug Resistant Organisms: None Reported Past Surgical History: Orthopedic Surgery Additional Past Surgical History / Comment(s): torn meniscus repair in right knee Smoking Status: Current every day smoker Past Alcohol Use History: None Reported Past Drug Use History: None Reported - Past Family History Father Family Medical History: Chest Pain / Angina, Coronary Artery Disease (CAD), Myocardial Infarction ([place]) Additional Family Medical History / Comment(s): Father had colon cancer and of liver cancer Mother Family Medical History: CVA/TIA, Diabetes Mellitus, Myocardial Infarction ([place]) Additional Family Medical History / Comment(s): hip fracture Brother(s) Additional Family Medical History / Comment(s): middle brother of testicular cancer at age of 35. oldest brother has 4 cardiac stents <Terrence Wen - Last Filed: 11/15/16 06:26> General Exam <Terrence Wen - Last Filed: 11/15/16 06:26> <Dustin Mary - Last Filed: 11/15/16 09:13> - General Exam Comments Initial Comments: GENERAL: Patient is well-developed and well-nourished. Patient is nontoxic and well- hydrated and is in mild distress. ENT: Neck is soft and supple. No significant lymphadenopathy is noted. Oropharynx is clear. Moist mucous membranes. Neck has full range of motion without eliciting any pain. EYES: The sclera were anicteric and conjunctiva were pink and moist. Extraocular movements were intact and pupils were equal round and reactive to light. Eyelids were unremarkable. PULMONARY: Unlabored respirations. Good breath sounds bilaterally. No audible rales rhonchi or wheezing was noted. CARDIOVASCULAR: There is a regular rate and rhythm without any murmurs gallops or rubs. ABDOMEN: Soft and nontender with normal bowel sounds. No palpable organomegaly was noted. There is no palpable pulsatile mass. SKIN: Skin is clear with no lesions or rashes and otherwise unremarkable. NEUROLOGIC: Patient is alert and oriented x3. Cranial nerves II through XII are grossly intact. Motor and sensory are also intact. Normal speech, volume and content. Symmetrical smile. MUSCULOSKELETAL: Normal extremities with adequate strength and full range of motion. No lower extremity swelling or edema. No calf tenderness. LYMPHATICS: No significant lymphadenopathy is noted PSYCHIATRIC: Normal psychiatric evaluation. Normal interpersonal interactions appears functionally intact in deals appropriately with others. No signs of depression. No signs of anxiety. (Terrence Wen) Course <Terrence Wen - Last Filed: 11/15/16 06:26> <Dustin Mary - Last Filed: 11/15/16 09:13> Vital Signs 11/15/16 11/15/16 11/15/16 06:24 07:29 09:08 Temperature 97.2 F L 98.2 F Pulse Rate 66 55 L 54 L Respiratory 16 16 16 Rate Blood Pressure 131/68 111/59 103/57 O2 Sat by Pulse 100 97 99 Oximetry - Reevaluation(s) Reevaluation #1: 11/15/16 09:01 The patient was endorsed to me by Dr. Michael and her shift change. The patient' s lab work has been obtained he has a slight elevation of his troponin. He will be admitted with consultation by cardiology. (Dustin Mary) Reevaluation #2: 11/15/16 09:12 I did initially discuss the case with Dr. Marlow who will see the patient (Dustin Mary) Medical Decision Making <Terrence Wen - Last Filed: 11/15/16 06:26> - Lab Data Result diagrams: 11/15/16 06:18 11/15/16 06:18 <Dustin Mary - Last Filed: 11/15/16 09:13> - Medical Decision Making EKG shows a sinus bradycardia at 56 bpm RI interval is 188 QRS is 94 QT interval is 424 QTC is 409. Patient's EKG shows no ST segment elevation or depression or T wave abnormalities are noted. Dr. Mary will be taking over the care of this patient at 7 AM (Terrence Wen) - Lab Data Lab Results 11/15/16 11/15/16 11/15/16 Range/Units 06:18 06:18 06:18 WBC 9.2 (3.8-10.6) k/uL RBC 3.69 L (4.30-5.90) m/uL Hgb 10.5 L (13.0-17.5) gm/dL Hct 32.5 L (39.0-53.0) % MCV 88.2 (80.0-100.0) fL MCH 28.5 (25.0-35.0) pg MCHC 32.3 (31.0-37.0) g/dL RDW 13.8 (11.5-15.5) % Plt Count 236 (150-450) k/uL Neutrophils % 56 % Lymphocytes % 31 % Monocytes % 7 % Eosinophils % 2 % Basophils % 1 % Neutrophils # 5.2 (1.3-7.7) k/uL Lymphocytes # 2.9 (1.0-4.8) k/uL Monocytes # 0.7 (0-1.0) k/uL Eosinophils # 0.2 (0-0.7) k/uL Basophils # 0.1 (0-0.2) k/uL PT (9.0-12.0) sec INR (<1.1) APTT (22.0-30.0) sec Sodium 143 (137-145) mmol/L Potassium 5.0 (3.5-5.1) mmol/L Chloride 108 H (98-107) mmol/L Carbon Dioxide 24 (22-30) mmol/L Anion Gap 11 mmol/L BUN 15 (9-20) mg/dL Creatinine 0.92 (0.66-1.25) mg/dL Est GFR (MDRD) Af Amer >60 (>60 ml/min/1.73 sqM) Est GFR (MDRD) Non-Af >60 (>60 ml/min/1.73 sqM) Glucose 168 H (74-99) mg/dL Calcium 9.0 (8.4-10.2) mg/dL Magnesium 1.8 (1.6-2.3) mg/dL Total Bilirubin 0.4 (0.2-1.3) mg/dL AST 21 (17-59) U/L ALT 30 (21-72) U/L Alkaline Phosphatase 42 (38-126) U/L Total Creatine Kinase 79 (55-170) U/L CK-MB (CK-2) 0.7 (0.0-2.4) ng/mL CK-MB (CK-2) Rel Index 0.9 Troponin I 0.064 H* (0.000-0.034) ng/mL Total Protein 6.8 (6.3-8.2) g/dL Albumin 4.0 (3.5-5.0) g/dL 11/15/16 Range/Units 06:18 WBC (3.8-10.6) k/uL RBC (4.30-5.90) m/uL Hgb (13.0-17.5) gm/dL Hct (39.0-53.0) % MCV (80.0-100.0) fL MCH (25.0-35.0) pg MCHC (31.0-37.0) g/dL RDW (11.5-15.5) % Plt Count (150-450) k/uL Neutrophils % % Lymphocytes % % Monocytes % % Eosinophils % % Basophils % % Neutrophils # (1.3-7.7) k/uL Lymphocytes # (1.0-4.8) k/uL Monocytes # (0-1.0) k/uL Eosinophils # (0-0.7) k/uL Basophils # (0-0.2) k/uL PT 11.1 (9.0-12.0) sec INR 1.1 (<1.1) APTT 23.0 (22.0-30.0) sec Sodium (137-145) mmol/L Potassium (3.5-5.1) mmol/L Chloride (98-107) mmol/L Carbon Dioxide (22-30) mmol/L Anion Gap mmol/L BUN (9-20) mg/dL Creatinine (0.66-1.25) mg/dL Est GFR (MDRD) Af Amer (>60 ml/min/1.73 sqM) Est GFR (MDRD) Non-Af (>60 ml/min/1.73 sqM) Glucose (74-99) mg/dL Calcium (8.4-10.2) mg/dL Magnesium (1.6-2.3) mg/dL Total Bilirubin (0.2-1.3) mg/dL AST (17-59) U/L ALT (21-72) U/L Alkaline Phosphatase (38-126) U/L Total Creatine Kinase (55-170) U/L CK-MB (CK-2) (0.0-2.4) ng/mL CK-MB (CK-2) Rel Index Troponin I (0.000-0.034) ng/mL Total Protein (6.3-8.2) g/dL Albumin (3.5-5.0) g/dL Disposition <Terrence Wen - Last Filed: 11/15/16 06:26> <Dustin Mary - Last Filed: 11/15/16 09:13> Clinical Impression: Non-ST elevation myocardial infarction (NSTEMI), Unstable angina pectoris, Chest pain Disposition: ADMITTED IP TO THIS HOSP Condition: Stable Referrals: Morteza Villasenor MD [Primary Care Provider] - 1-2 days
[2016-11-15 06:37] LABS: Basophils # (A) 0.1 k/uL (0-0.2); Basophils % (A) 1 %; CH 28.6; CHCM 32.7; Eosinophils # (A) 0.2 k/uL (0-0.7); Eosinophils % (A) 2 %; HCT 32.5 % (39.0-53.0); HDW 2.59; HGB 10.5 gm/dL (13.0-17.5); Luc # (Auto) 0.24; Luc % (Auto) 3; Lymphocytes # (A) 2.9 k/uL (1.0-4.8); Lymphocytes % (A) 31 %; MCH 28.5 pg (25.0-35.0); MCHC 32.3 g/dL (31.0-37.0); MCV 88.2 fL (80.0-100.0); Monocytes # (A) 0.7 k/uL (0-1.0); Monocytes % (A) 7 %; Neutrophils # (A) 5.2 k/uL (1.3-7.7); Neutrophils % (A) 56 %; RBC 3.69 m/uL (4.30-5.90); RDW 13.8 % (11.5-15.5); WBC 9.2 k/uL (3.8-10.6); WBC (Perox) 9.33
[2016-11-15 06:46] LABS: INR 1.1 (<1.1); Prothrombin Time 11.1 sec (9.0-12.0)
[2016-11-15 06:59] LABS: ALT 30 U/L (21-72); AST 21 U/L (17-59); Alkaline Phosphatase 42 U/L (38-126); Anion Gap 11 mmol/L; Blood Urea Nitrogen 15 mg/dL (9-20); Carbon Dioxide 24 mmol/L (22-30); Chloride 108 mmol/L (98-107); Glucose 168 mg/dL (74-99); Magnesium 1.8 mg/dL (1.6-2.3); Non-African American GFR(MDRD) >60 (>60 ml/min/1.73 sqM); Sodium 143 mmol/L (137-145); Total Bilirubin 0.4 mg/dL (0.2-1.3); Total Protein 6.8 g/dL (6.3-8.2)
--- NOTE | 2016-11-15 07:09 | XR ---
EXAMINATION TYPE: XR chest 2V DATE OF EXAM: 11/15/2016 6:41 AM HISTORY: Chest Pain. REFERENCE: NONE. FINDINGS: Heart size is upper limits of normal. The lungs are clear. Pleural spaces are clear. IMPRESSION: BORDERLINE CARDIOMEGALY.
[2016-11-15 07:14] LABS: Creatine Kinase MB 0.7 ng/mL (0.0-2.4)
[2016-11-15 07:18] LABS: Troponin I 0.064 ng/mL (0.000-0.034)
[2016-11-15] MEDS ORDERED: ACETAMINOPHEN TAB 500 MG TAB PO STA (07:55)
[2016-11-15] MEDS ORDERED: HEPARIN SODIUM,PORCINE 5,000 UNIT/ML 1 ML VIAL IV ONE (09:05)
[2016-11-15] MEDS ORDERED: NITROGLYCERIN SL TABS 0.4 MG TAB SUBLINGUAL PRN ×2 (09:05→11:45)
[2016-11-15] MEDS: SODIUM CHLORIDE 0.9% 1,000 ML IV SCH (09:31)
[2016-11-15] MEDS: HEPARIN SODIUM,PORCINE/D5W PMX 25,000 UNIT in DEXTROSE/WATER 1 500ML.BAG IV SCH (09:32)
[2016-11-15] MEDS ORDERED: MIDAZOLAM 2 MG/2 ML VIAL ONE (09:36)
[2016-11-15] MEDS ORDERED: LIDOCAINE 2% INJ 20 MG/ML (20 ML MDV) ONE (09:36)
[2016-11-15] MEDS ORDERED: fentaNYL (PF) 50 MCG/ML 2 ML AMP ONE (09:37)
[2016-11-15] MEDS: MIDAZOLAM 2 MG/2 ML VIAL IVP ONE ×2 (10:11→11:23)
[2016-11-15] MEDS ORDERED: fentaNYL (PF) 50 MCG/ML 2 ML AMP IV ONE (10:12)
[2016-11-15] MEDS ORDERED: SODIUM CHLORIDE 0.9% 500 ML IV ONE (10:16)
[2016-11-15] MEDS ORDERED: LIDOCAINE 2% INJ 20 MG/ML SQ ONE (10:17)
[2016-11-15] MEDS ORDERED: BIVALIRUDIN BOLUS 250 MG/50 ML IV ONE (11:20)
[2016-11-15] MEDS ORDERED: NITROGLYCERIN 1000MCG/10ML SYRINGE INTRACORON ONE (11:35)
--- NOTE | 2016-11-15 11:35 | CC ---
DATE OF SERVICE: This patient is status post recent anterior wall myocardial infarction with a totally occluded mid LAD. Patient underwent stent at that time. Distal LAD remain occluded ( ) difficult to open it. Patient came back with intermittent chest pain last night. EKG shows evolutionary changes of recent anterior wall TN. Troponin was 0.06. In view of that, the patient was recommended to have a cardiac catheterization for definitive diagnosis. PROCEDURE: The right groin was prepped and draped in the usual manner and the skin was infiltrated with 2% Xylocaine. The right femoral artery is entered using Seldinger technique and a #6 [place] sheath was placed in. Selective coronary angiography was then performed in multiple projections and the left ventricular pressures were obtained. Patient tolerated the procedure well. HEMODYNAMICS: Left ventricular end-diastolic pressure was 24 mmHg prior to angiography. No gradient was noted across the aortic valve. SELECTIVE CORONARY ANGIOGRAPHY: Left main coronary artery is normal. LAD is patent at the site of the prior stent. The distal LAD is now subtotal with flow noted in the distal LAD and there is a tight stenosis. The distal LAD as such it is a small-caliber blood vessel. The first diagonal branch is diffusely diseased. It was angioplastied the last time, but in mid portion there is diffuse disease with focal stenosis of at least 70%. Circumflex coronary artery is a good caliber blood vessel. The first OM branch has about 40% stenosis. Second OM branch has a high-grade 90% stenosis. Right coronary artery is ectatic and diffusely diseased. RECOMMENDATIONS: We will review the films with Dr. Mistry and consider probably stent to the LAD and the OM branch and possible diagonal branch.
[2016-11-15] MEDS ORDERED: BIVALIRUDIN 250 MG in SODIUM CHLORIDE 0.9% 50 ML IV ONE (11:40)
[2016-11-15] MEDS ORDERED: IOHEXOL 350 MG/ML 100 ML BOTTLE INJ ONE (11:40)
[2016-11-15] MEDS ORDERED: PRASUGREL 10 MG TAB ONE (11:45)
[2016-11-15] MEDS ORDERED: RX INFO: IV CONTRAST WAS GIVEN 1 EACH MISC MISCELLANE PRN (11:45)
[2016-11-15] MEDS ORDERED: ATROPINE SULFATE 0.1 MG/ML 10ML SYRINGE IV PRN (11:45)
[2016-11-15] MEDS ORDERED: SODIUM CHLORIDE 0.9% 1,000 ML IV SCH (11:45)
[2016-11-15] MEDS ORDERED: ZOLPIDEM 5 MG TAB PO PRN (11:45)
[2016-11-15] MEDS ORDERED: MAG HYDROX/AL HYDROX/SIMETH 30 ML CUP PO PRN (11:45)
[2016-11-15] MEDS ORDERED: PRASUGREL 10 MG TAB PO ONE (11:47)
--- NOTE | 2016-11-15 12:12 | PTCA ---
DATE OF SERVICE: 11/15/2016 PERFORMING PHYSICIAN: Elias Mistry MD, costume shop coordinator. PROCEDURE PERFORMED: 1. Successful stenting of the first obtuse marginal branch of the left circumflex using 2.75 x 15 mm Xience JUSTIN with a good angiographic results. 2. An attempted angioplasty of the second OM branch of the left circumflex. INDICATION: This is a pleasant 56-year-old gentleman who is known to have coronary artery disease and prior stenting of the LAD in the setting of acute PR presented to the hospital with chest discomfort and underwent a heart catheterization by Dr. Marlow and was found to have patent stent in the LAD with severe disease involving the first and second OM branch of the left circumflex. APPROACH: Right common femoral artery. COMPLICATIONS: None. LEVEL OF SEDATION: Moderate with a sedation length of 30 minutes. PROCEDURE DESCRIPTION: After diagnostic heart catheterization was performed by Dr. Dc Marlwo and after reviewing the angiogram, we decided to pursue angioplasty. Anticoagulation was initiated using Angiomax. Subsequently we took an XB 3.5 guide and the left main was engaged. A whisper wire was used to wire the first OM branch. Subsequently I did direct stenting on that lesion using 2.75 x 15 mm Xience JUSTIN, where the stent was positioned under fluoroscopy guidance and deployed under 14 atmospheres for 30 seconds. The following angiogram showed good angiographic results. Subsequently I directed my wire into the second OM branch of the left circumflex. I tried to advance 2.0 x 12 mm balloon but the balloon would not cross that second OM, which becomes small to medium caliber vessel. I decided to stop. POSTPROCEDURE MANAGEMENT: 1. Dual antiplatelet therapy. 2. Risk factor modification. 3. Follow up with the patient.
[2016-11-15 12:16] LABS: Hemoglobin A1C 7.7 % (4.2-6.1)
[2016-11-15 13:44] LABS: Creatine Kinase MB 0.7 ng/mL (0.0-2.4)
[2016-11-15 13:45] LABS: Troponin I 0.061 ng/mL (0.000-0.034)
[2016-11-15 15:10] LABS: Glucose,Whole Blood 82 mg/dL (75-99)
[2016-11-15 17:53] LABS: Glucose,Whole Blood 211 mg/dL (75-99)
[2016-11-15] MEDS: INSULIN LISPRO (humaLOG) 300 UNIT/3 ML VIAL SQ SCH ×3 (18:00→20:59)
[2016-11-15] MEDS: metFORMIN 500 MG TAB PO SCH (18:02)
[2016-11-15] MEDS: glipiZIDE 10 MG TAB PO SCH (18:39)
--- NOTE | 2016-11-15 19:28 | CONS ---
DATE OF CONSULTATION: Mr. Ashton is a 56-year-old gentleman who was seen in the emergency room because of the complaint of chest pain. This patient recently had an acute extensive anterior wall myocardial infarction. Patient underwent stent to the LAD in proximal and mid portion. The distal LAD remained occluded. The patient also had diffuse disease in the diagonal branch as well as obtuse marginal branch. The patient underwent a balloon dilatation in the diagonal branch. Patient was doing fairly well until last night. He had actually the low-level stress test done as an outpatient a few days ago without any symptoms of angina. Patient started having chest pain last night. The pain was in the substernal area. According to him, the pain was not very severe. He took a nitroglycerin and the pain went away. Subsequently patient had recurrent pain and he took 2 nitroglycerin and subsequently he called the EMS. Patient at present is comfortable. Denies any chest pain or shortness of breath. Patient claims that he is taking his medications regularly. Home medications included: 1. Aspirin 81 mg daily. 2. Lipitor 40 mg daily. 3. Zestril 2.5 mg daily. 4. Toprol XL 25 mg daily. 5. Nitroglycerin p.r.n. 6. Effient 20 mg daily. 7. Aldactone 25 mg daily. Past medical history includes: 1. History of hepatitis C 20 years ago. 2. History of diabetes. 3. Hypertension. 4. Hyperlipidemia. 5. History of orthopedic surgery, right knee. Physical examination at present reveals a 56-year-old gentleman who does not appear to be in any acute distress. The patient's blood pressure was 114/82 mmHg, heart rate 68 per minute. Head/ENT examination is negative. Neck is supple. There is no increase in jugular venous pressure. Both the carotid pulses are felt. There is no bruit. Chest is symmetrical. HEART: The PMI is not felt. First and second heart sounds are normal. There is no evidence of any murmur. Lungs are clinically clear to auscultation and percussion. Abdomen is soft. EXTREMITIES: Peripheral pulsations are 2+. EKG shows evolutionary changes of recent anterior wall myocardial infarction. Patient's troponin was 0.06. FINAL IMPRESSION: 1. Recurrent chest pains since yesterday with mildly elevated troponin suggestive of sgf-[id number]-elevation myocardial infarction. 2. Status post recent anterior wall myocardial infarction. 3. History of hypertension. 4. Diabetes. 5. Hyperlipidemia. RECOMMENDATIONS: We will proceed with cardiac catheterization for definitive diagnosis. The procedure and risks were fully explained to the patient.
[2016-11-15 20:53] LABS: Glucose,Whole Blood 175 mg/dL (75-99)
[2016-11-15] MEDS: LISINOPRIL 2.5 MG TAB PO SCH (20:59)
[2016-11-15] MEDS: ATORVASTATIN 40 MG TAB PO SCH (20:59)
[2016-11-15 21:11] LABS: Creatine Kinase MB 0.7 ng/mL (0.0-2.4)
[2016-11-15 21:12] LABS: Troponin I 0.077 ng/mL (0.000-0.034)
[2016-11-16] MEDS: metFORMIN 500 MG TAB PO SCH ×2 (05:29→08:56)
[2016-11-16 07:08] LABS: Basophils # (A) 0.1 k/uL (0-0.2); Basophils % (A) 1 %; CH 28.8; CHCM 32.3; Eosinophils # (A) 0.1 k/uL (0-0.7); Eosinophils % (A) 1 %; HCT 31.7 % (39.0-53.0); HDW 2.62; HGB 10.1 gm/dL (13.0-17.5); Luc # (Auto) 0.21; Luc % (Auto) 3; Lymphocytes # (A) 2.5 k/uL (1.0-4.8); Lymphocytes % (A) 30 %; MCH 28.7 pg (25.0-35.0); MCV 89.6 fL (80.0-100.0); Mean Platelet Volume 8.8; Monocytes # (A) 0.5 k/uL (0-1.0); Monocytes % (A) 6 %; Neutrophils # (A) 4.8 k/uL (1.3-7.7); Neutrophils % (A) 59 %; RBC 3.53 m/uL (4.30-5.90); RDW 13.6 % (11.5-15.5); WBC 8.2 k/uL (3.8-10.6); WBC (Perox) 8.15
[2016-11-16] MEDS: LINAGLIPTIN 5 MG TABLET PO SCH (07:11)
[2016-11-16] MEDS: INSULIN LISPRO (humaLOG) 300 UNIT/3 ML VIAL SQ SCH ×4 (07:12→21:06)
[2016-11-16 07:13] LABS: Glucose,Whole Blood 124 mg/dL (75-99)
[2016-11-16 07:27] LABS: Anion Gap 7 mmol/L; Blood Urea Nitrogen 13 mg/dL (9-20); Calcium 8.7 mg/dL (8.4-10.2); Carbon Dioxide 29 mmol/L (22-30); Chloride 107 mmol/L (98-107); Cholesterol 100 mg/dL (<200); Glucose 111 mg/dL (74-99); HDL Cholesterol 35 mg/dL (40-60); Non-African American GFR(MDRD) >60 (>60 ml/min/1.73 sqM); Potassium 4.9 mmol/L (3.5-5.1); Sodium 143 mmol/L (137-145); Triglycerides 65 mg/dL (<150)
[2016-11-16] MEDS: ASPIRIN 325 MG TAB PO SCH (08:01)
[2016-11-16] MEDS: NICOTINE 21MG/24HR PATCH TRANSDERM SCH (08:01)
[2016-11-16] MEDS: SPIRONOLACTONE 25 MG TAB PO SCH (08:02)
[2016-11-16] MEDS: HEPARIN SODIUM,PORCINE/D5W PMX 25,000 UNIT in DEXTROSE/WATER 1 500ML.BAG IV SCH (08:02)
[2016-11-16] MEDS: METOPROLOL SUCCINATE (ER) 25 MG TAB.ER.24H PO SCH (08:02)
[2016-11-16] MEDS: PRASUGREL 10 MG TAB PO SCH (08:02)
[2016-11-16] MEDS: SODIUM CHLORIDE 0.9% 1,000 ML IV SCH (08:03)
--- NOTE | 2016-11-16 10:16 | HP ---
DATE OF ADMISSION: 11/15/2016 PRESENTING COMPLAINT: Chest pain. HISTORY OF PRESENTING COMPLAINT: This is a patient seen by me yesterday evening on 11/15/16. This is a pleasant gentleman who was recently in the hospital, discharged on 10/29/16. Patient at that time had presented with acute ST elevation myocardial infarction and had a stent placed to the LAD. Patient was found to have diffuse disease in multiple vessels. Patient's chronic stable medical conditions include diabetes mellitus type 2, hypertension, hyperlipidemia and ischemic cardiomyopathy; EF 35% to 40%. Patient the night before presentation developed central chest pressure, took a Nitro and ( ) off. The next morning, patient again had left-sided chest pain, took 2 nitro, did not respond, hence, decided to come in. There was no radiation. There was no shortness of breath. No palpitation. No perspiration. Patient when arrived, troponin was 0.064, was taken to the dental laboratory manager by Dr. Mistry following a cardiac catheterization by Dr. Dc Marlow and had a stenting to the first obtuse marginal and second OM branch of the left circumflex was unsuccessful. REVIEW OF SYSTEMS: CONSTITUTIONAL: Tired. HEENT: None. RESPIRATORY: None. CARDIOVASCULAR: As above. GASTROINTESTINAL: None. GENITOURINARY: None. MUSCULOSKELETAL: None. DERMATOLOGIC: None. HEMATOLOGIC: None. LYMPHATIC: None. PSYCHIATRY: None. NEUROLOGICAL: None. Past medical history of diabetes mellitus type 2, hypertension, hyperlipidemia, coronary artery disease with stent. PAST SURGICAL HISTORY: Cardiac catheterization. SOCIAL HISTORY: The patient smoked a pack a up to 3 weeks ago. 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 . FAMILY HISTORY: Both brother and father have coronary artery disease. HOME MEDICATIONS: 1. Janumet one tablet b.i.d. 2. Glyburide 5 mg at supper. 3. Aldactone 25 mg a day. 4. Effient 10 mg a day. 5. Nitrostat 0.4 sublingual q.5 p.r.n. 6. Nicotine patch. 7. Toprol XL 25 mg a day. 8. Zestril 2.5 mg q.h.s. 9. Lipitor 40 mg q.h.s. 10. Aspirin 81 mg a day. ALLERGIES: None. ON EXAMINATION: VITAL SIGNS ON PRESENTATION: Temperature 97.2, pulse 66, respirations 16, blood pressure 131/68, pulse ox 100% on 2 L. GENERAL APPEARANCE: Average built, lying in bed, comfortable. EYES: Pupils equal. Conjunctivae normal. HEENT: External appearance of nose and ears normal. Oral cavity normal. NECK: JVD not raised. Mass not palpable. RESPIRATORY: Effort normal. LUNGS: Slightly decreased breath sounds. CARDIOVASCULAR: First and second sounds normal. No edema. ABDOMEN: Soft, nontender. Liver and spleen not palpable. LYMPHATIC: No lymph node palpable in neck or axillae. PSYCHIATRY: Alert and oriented x3. Mood and affect normal. INVESTIGATIONS: White count 9.2, hemoglobin 10.5. Potassium 5. Troponin 0.064, 0.061. EKG, sinus bradycardia shows poor R wave progression in the anterior leads. Chest x-ray shows some cardiomegaly. ASSESSMENT: 1. Unstable angina in a patient with recent acute ST elevation myocardial infarction with intervention to the left anterior descending artery. Now with successful stenting to the first obtuse marginal branch of the circumflex. 2. Acute ST elevation myocardial infarction, anterior wall, on 10/26/2016. 3. Diabetes mellitus, type 2 on oral hypoglycemic. 4. Essential hypertension. 5. Hyperlipidemia. 6. Emphysema in an ex-smoker. 7. Ischemic cardiomyopathy; ejection fraction 35% to 40%. PLAN: Patient's home medications are resumed. Glucophage will be held as per cardiac cath protocol. Accu-Cheks will be followed. Nicotine patch was given. Care was discussed with the patient.
[2016-11-16 11:27] LABS: Glucose,Whole Blood 262 mg/dL (75-99)
--- NOTE | 2016-11-16 16:08 | P.PN ---
Subjective This is a pleasant 56-year-old gentleman who follows with Dr. VC Marlow in the office. Was admitted to the emergency room because of complaint of chest tightness. Has a recent history of extensive acute anterior wall NH and underwent stent to the LAD in the proximal and midportion, distal LAD remained occluded. The patient also had diffuse disease in the diagonal branch as well as the obtuse marginal branch. Patient was doing fairly well until evening when he developed some chest discomfort. It was not relieved with nitro. The patient underwent cardiac catheterization by Dr. Marlow and stenting of the first obtuse marginal branch by Dr. Mitsry. This morning he is doing well. Denies further complaints of chest discomfort. Objective - Vital Signs Vital signs: Vital Signs Temp 97.2 F L 11/16/16 08:00 Pulse 68 11/16/16 10:50 Resp 18 11/16/16 10:50 BP 106/59 11/16/16 10:50 Pulse Ox 100 11/16/16 10:50 Intake & Output 11/15/16 11/16/16 11/16/16 18:59 06:59 18:59 Intake Total 300 416 Output Total 1475 Balance -1175 416 Intake: IV 300 Oral 416 Output: Urine 1475 Other: Voiding Method Toilet Urinal # Voids 1 1 - Exam PHYSICAL EXAMINATION: HEENT: Head is atraumatic, normocephalic. Pupils equal, round. Neck is supple. There is no elevated jugular venous pressure. HEART EXAMINATION: Heart sounds regular, S1 and S2 normal. No murmur or gallop heard. CHEST EXAMINATION: Lungs are clear to auscultation and precussion. No chest wall tenderness is noted on palpation or with deep breathing. ABDOMEN: Soft, nontender. Bowel sounds are heard. No organomegaly noted. EXTREMITIES: 2+ peripheral pulses with no evidence of peripheral edema and no calf tenderness noted. Right groin puncture site soft with small amount of ecchymosis, no hematoma.. NEUROLOGIC patient is awake, alert and oriented x3. . - Labs CBC & Chem 7: 11/16/16 06:48 11/16/16 06:48 Labs: Abnormal Lab Results - Last 24 Hours (Table) 11/15/16 11/15/16 11/15/16 Range/Units 17:51 17:58 20:48 RBC (4.30-5.90) m/uL Hgb (13.0-17.5) gm/dL Hct (39.0-53.0) % Glucose (74-99) mg/dL POC Glucose (mg/dL) 211 H 175 H (75-99) mg/dL Troponin I 0.077 H* (0.000-0.034) ng/mL HDL Cholesterol (40-60) mg/dL 11/16/16 11/16/16 11/16/16 Range/Units 06:48 06:48 07:01 RBC 3.53 L (4.30-5.90) m/uL Hgb 10.1 L (13.0-17.5) gm/dL Hct 31.7 L (39.0-53.0) % Glucose 111 H (74-99) mg/dL POC Glucose (mg/dL) 124 H (75-99) mg/dL Troponin I (0.000-0.034) ng/mL HDL Cholesterol 35 L (40-60) mg/dL 11/16/16 Range/Units 11:24 RBC (4.30-5.90) m/uL Hgb (13.0-17.5) gm/dL Hct (39.0-53.0) % Glucose (74-99) mg/dL POC Glucose (mg/dL) 262 H (75-99) mg/dL Troponin I (0.000-0.034) ng/mL HDL Cholesterol (40-60) mg/dL Assessment and Plan Plan: Assessment and plan #1 recurrent chest pain and the elevated troponin suggestive of a non-ST segment elevated NH, status post stent placement to obtuse marginal branch #2 status post recent anterior wall NH with stent placement to LAD #3 hypertension #4 diabetes #5 hyperlipidemia From cardiac standpoint, patient is doing fairly well. Medications were reviewed and we will continue the same. Anticipate the patient will be discharged within the next 24 hours. He'll follow-up with Dr. VC Marlow in the office. Further recommendations to follow. GLOVE BRUSHER note has been reviewed, I agree with a documented findings and plan of care. Patient was seen and examined.
[2016-11-16] MEDS ORDERED: ACETAMINOPHEN TAB 325 MG TAB PO PRN (16:22)
[2016-11-16 16:37] LABS: Glucose,Whole Blood 86 mg/dL (75-99)
[2016-11-16] MEDS: glipiZIDE 10 MG TAB PO SCH (17:00)
--- NOTE | 2016-11-16 19:35 | PN ---
DATE OF SERVICE: 11/16/2016 PRESENTING COMPLAINT: Chest pain. INTERVAL HISTORY: This patient with acute CO within the last 3 weeks presented yet again with chest pain and underwent another stent. Patient has been up in the hallway. No chest pain or short of breath. Review of systems done for constitutional, cardiovascular, GI, pulmonary; relevant findings as above. Current medications are reviewed. On examination, temperature 97.2, pulse 56, respiration 18, blood pressure 100/55, pulse ox 100% on room air. GENERAL APPEARANCE: Sitting in bed, comfortable. EYES: Pupils equal. Conjunctivae normal. NECK: JVD not raised. Mass not palpable. RESPIRATORY: Effort normal. LUNGS: Slightly decreased sounds. CARDIOVASCULAR: First and second sounds normal. No edema. ABDOMEN: Soft, nontender. Liver and spleen not palpable. PSYCHIATRY: Alert and oriented times three. Mood and affect normal. INVESTIGATIONS: White count 8.2, hemoglobin 10.1, potassium 4.9. ASSESSMENT: 1. Unstable angina in a patient with recent acute ST elevation myocardial infarction with intervention to the LAD, now with successful stenting to the first obtuse marginal branch of the circumflex. 2. Acute ST elevation myocardial infarction anterior wall on 10/26/2016. 3. Diabetes mellitus Type 2, on oral hypoglycemics. 4. Essential hypertension. 5. Hyperlipidemia. 6. Emphysema in an ex-smoker. 7. Ischemic cardiomyopathy; ejection fraction 35% to 40%. PLAN: Care was discussed with the patient. Encouraged to get about.
--- NOTE | 2016-11-16 19:48 | ECHOF ---
Referral Reason:ms MEASUREMENTS -------- HEIGHT: 152.4 cm WEIGHT: 68.0 kg BP: 100/55 RVIDd: 2.4 cm (< 3.3) IVSd: 0.9 cm (0.6 - 1.1) LVIDd: 4.9 cm (3.9 - 5.3) LVPWd: 1.2 cm (0.6 - 1.1) IVSs: 1.2 cm LVIDs: 3.9 cm LVPWs: 1.4 cm LA Diam: 3.3 cm (2.7 - 3.8) LAESV Index (A-L): 41.11 ml/m Ao Diam: 2.8 cm (2.0 - 3.7) AV Cusp: 1.9 cm (1.5 - 2.6) LA Diam: 4.4 cm (2.7 - 3.8) MV EXCURSION: 20.824 mm (> 18.000) MV EF SLOPE: 169 mm/s (70 - 150) EPSS: 0.3 cm RAP: 5.00 mmHg RVSP: 37.58 mmHg FINDINGS -------- Sinus rhythm. This was a technically good study. There is mild concentric left ventricular hypertrophy. Overall left ventricular systolic function is moderately impaired with, an EF between 35 - 40 %. Anterseptal Hypokinesis [place] Hypokinesis. The right ventricle is normal in size. LA is severely dilated >40 ml/m2 The right atrial size is normal. There is mild aortic valve sclerosis. There is no evidence of aortic regurgitation. Mild mitral annular calcification present. Mild mitral regurgitation is present. Mild tricuspid regurgitation present. There is no evidence of pulmonary hypertension. The right ventricular systolic pressure, as measured by Doppler, is 37.58mmHg. The aortic root size is normal. There is no pericardial effusion. CONCLUSIONS -------- 1. There is mild concentric left ventricular hypertrophy. 2. There is no evidence of pulmonary hypertension. 3. The right ventricular systolic pressure, as measured by Doppler, is 37.58mmHg. 4. The aortic root size is normal. 5. There is no pericardial effusion. 6. Overall left ventricular systolic function is moderately impaired with, an EF between 35 - 40 %. 7. Anterseptal Hypokinesis 8. [place] Hypokinesis. 9. LA is severely dilated >40 ml/m2 10. There is mild aortic valve sclerosis. 11. Mild mitral annular calcification present. 12. Mild mitral regurgitation is present. 13. Mild tricuspid regurgitation present. RADIOLOGY DIRECTOR: Oneyda Dorsey RDCS
[2016-11-16 20:54] LABS: Glucose,Whole Blood 255 mg/dL (75-99)
[2016-11-16] MEDS: LISINOPRIL 2.5 MG TAB PO SCH (21:06)
[2016-11-16] MEDS: ATORVASTATIN 40 MG TAB PO SCH (21:06)
[2016-11-17 06:30] LABS: Glucose,Whole Blood 157 mg/dL (75-99)
[2016-11-17] MEDS: LINAGLIPTIN 5 MG TABLET PO SCH (06:56)
[2016-11-17] MEDS: INSULIN LISPRO (humaLOG) 300 UNIT/3 ML VIAL SQ SCH ×4 (06:56→21:06)
[2016-11-17] MEDS: metFORMIN 500 MG TAB PO SCH ×2 (06:56→17:11)
[2016-11-17] MEDS: NICOTINE 21MG/24HR PATCH TRANSDERM SCH (08:04)
[2016-11-17] MEDS: ASPIRIN 325 MG TAB PO SCH (08:05)
[2016-11-17] MEDS: PRASUGREL 10 MG TAB PO SCH (08:05)
[2016-11-17] MEDS: METOPROLOL SUCCINATE (ER) 25 MG TAB.ER.24H PO SCH (08:05)
[2016-11-17] MEDS: SPIRONOLACTONE 25 MG TAB PO SCH (08:05)
[2016-11-17 11:36] LABS: Glucose,Whole Blood 245 mg/dL (75-99)
[2016-11-17 16:37] LABS: Glucose,Whole Blood 171 mg/dL (75-99)
[2016-11-17] MEDS: glipiZIDE 10 MG TAB PO SCH (17:11)
--- NOTE | 2016-11-17 19:10 | P.PN ---
Subjective Patient is feeling well denies any chest pain. Patient is status post stent to the obtuse marginal branch. Patient's echocardiogram reveals anteroapical hypokinesia. Ejection fraction is 35-40%. Objective - Vital Signs Vital signs: Vital Signs Temp 97.3 F L 11/17/16 18:00 Pulse 63 11/17/16 18:00 Resp 18 11/17/16 18:00 BP 116/64 11/17/16 18:00 Pulse Ox 97 11/17/16 18:00 Intake & Output 11/17/16 11/17/16 11/18/16 06:59 18:59 06:59 Intake Total 1380 Output Total 400 Balance 980 Weight 66.4 kg Intake: Oral 1380 Output: Urine 400 Other: Voiding Method Toilet # Voids 1 - Exam Patient is comfortable in no distress. Heart first and second heart sounds are normal. Lungs. Clear to auscultation and percussion. - Labs CBC & Chem 7: 11/16/16 06:48 11/16/16 06:48 Labs: Abnormal Lab Results - Last 24 Hours (Table) 11/16/16 11/17/16 11/17/16 Range/Units 20:45 06:28 11:34 POC Glucose (mg/dL) 255 H 157 H 245 H (75-99) mg/dL 11/17/16 Range/Units 16:35 POC Glucose (mg/dL) 171 H (75-99) mg/dL Assessment and Plan Plan: This patient is status post stent to the obtuse marginal branch. I will increase the dose of lisinopril to 5 mg daily.
[2016-11-17] MEDS: ATORVASTATIN 40 MG TAB PO SCH (21:06)
[2016-11-17 21:12] LABS: Glucose,Whole Blood 169 mg/dL (75-99)
[2016-11-18 06:31] LABS: Glucose,Whole Blood 173 mg/dL (75-99)
[2016-11-18] MEDS: LINAGLIPTIN 5 MG TABLET PO SCH (07:09)
[2016-11-18] MEDS: metFORMIN 500 MG TAB PO SCH ×2 (07:09→17:05)
[2016-11-18] MEDS: INSULIN LISPRO (humaLOG) 300 UNIT/3 ML VIAL SQ SCH ×3 (07:09→17:03)
--- NOTE | 2016-11-18 07:37 | PN ---
DATE OF SERVICE: 11/17/2016 PRESENTING COMPLAINT: Chest pain. INTERVAL HISTORY: This is patient with acute AL over the last 3 weeks, presented for the chest pain, had another stent placed, up and about in the hallway. No chest pain or shortness of breath. Feeling better. Review of systems done for constitutional, cardiovascular, GI, pulmonary; relevant findings as above. Current medications are reviewed. On examination, temperature 97.3, pulse 63, respirations 18, blood pressure 116/54, pulse ox 97% on room air. GENERAL APPEARANCE: Sitting up, comfortable. EYES: Pupils equal, conjunctivae normal. NECK: JVD not raised, mass not palpable. Respiratory effort normal. LUNGS: Slightly decreased breath sounds. CARDIOVASCULAR: First and second sounds normal. No edema. ABDOMEN: Soft, nontender. Liver and spleen not palpable. PSYCHIATRY: Alert and oriented x3. Mood and affect normal. INVESTIGATIONS: Accu-Cheks are noted. ASSESSMENT: 1. Unstable angina in a patient with recent acute ST-elevation myocardial infarction, intervention to the left anterior descending artery now with successful stenting to the first obtuse marginal prior to the circumflex. 2. Acute ST-elevation myocardial infarction, anterior wall on 10/26/2016. 3. Diabetes mellitus type 2, on oral hypoglycemic. 4. Essential hypertension. 5. Hyperlipidemia. 6. Emphysema in an ex-smoker. 7. Ischemic cardiomyopathy. Ejection fraction 35% to 40%. PLAN: Patient is stable. Continue current medication and treatment plan. Patient should be able to go back on his metformin now.
[2016-11-18 08:20] VITALS: TEMP 97
[2016-11-18] MEDS: METOPROLOL SUCCINATE (ER) 25 MG TAB.ER.24H PO SCH (08:22)
[2016-11-18] MEDS: SPIRONOLACTONE 25 MG TAB PO SCH (08:22)
[2016-11-18] MEDS: NICOTINE 21MG/24HR PATCH TRANSDERM SCH (08:22)
[2016-11-18] MEDS: PRASUGREL 10 MG TAB PO SCH (08:22)
[2016-11-18] MEDS: ASPIRIN 325 MG TAB PO SCH (08:22)
[2016-11-18] MEDS ORDERED: LISINOPRIL 5 MG TAB PO SCH (09:00)
[2016-11-18 12:17] LABS: Glucose,Whole Blood 77 mg/dL (75-99)
--- NOTE | 2016-11-18 15:30 | P.PN ---
Subjective Principal diagnosis: Chest pain This is a 56-year-old gentleman admitted to the emergency room with complaints of chest pain. Patient has recent history of extensive acute anterior wall ME at which time he underwent angioplasty and stenting of the LAD in the proximal and midportion, distal LAD remained occluded. Patient also had diffuse disease in diagonal branch and obtuse marginal branch. A repeat presented to the hospital on evening with symptoms of chest discomfort and was taken to the cardiac catheterization lab where he underwent stenting of the first obtuse marginal branch by Dr. Barba. Patient was seen and examined this morning, denies any chest pain or difficulty in breathing he's been up ambulating without any difficulty. Objective - Vital Signs Vital signs: Vital Signs Temp 97.0 F L 11/18/16 11:55 Pulse 56 L 11/18/16 12:00 Resp 18 11/18/16 12:00 BP 109/58 11/18/16 11:55 Pulse Ox 100 11/18/16 11:55 Intake & Output 11/17/16 11/18/16 11/18/16 18:59 06:59 18:59 Intake Total 1380 720 Output Total 400 800 Balance 980 -80 Weight 66.4 kg 66.5 kg 66.5 kg Intake: Oral 1380 720 Output: Urine 400 800 Other: Voiding Method Toilet Toilet Toilet # Voids 1 1 1 # Bowel Movements 1 - Exam PHYSICAL EXAMINATION: HEENT: [Head is atraumatic, normocephalic. Pupils equal, round. Neck is supple. There is no elevated jugular venous pressure.] HEART EXAMINATION: [Heart S1, S2 normal. No murmur or gallop heard.] CHEST EXAMINATION:[ Lungs are clear to auscultation and precussion. No chest wall tenderness is noted on palpation or with deep breathing.] ABDOMEN: [ Soft, nontender. Bowel sounds are heard. No organomegaly noted]. EXTREMITIES:[ 2+ peripheral pulses with no evidence of peripheral edema and no calf tenderness noted]. NEUROLOGIC [patient is awake, alert and oriented -3.] . - Labs CBC & Chem 7: 11/16/16 06:48 11/16/16 06:48 Labs: Abnormal Lab Results - Last 24 Hours (Table) 11/17/16 11/17/16 11/18/16 Range/Units 16:35 20:33 06:29 POC Glucose (mg/dL) 171 H 169 H 173 H (75-99) mg/dL Assessment and Plan (1) Diabetes Status: Acute (2) Chest pain Status: Acute (3) HTN (hypertension) Status: Acute (4) Hyperlipemia Status: Acute (5) Presence of stent in LAD coronary artery Status: Acute Plan: Patient underwent angioplasty and stenting of the obtuse marginal branch. He will be discharged home today. A follow-up appointment will be made with Dr. VC Marlow in the office in one week. DNP note has been reviewed, I agree with a documented findings and plan of care. Patient was seen and examined.
[2016-11-18 16:20] VITALS: BP 115/57; PULSE 60; RESP 16
[2016-11-18 17:04] LABS: Glucose,Whole Blood 129 mg/dL (75-99)
[2016-11-18] MEDS: glipiZIDE 10 MG TAB PO SCH (17:05)
[2016-11-18] MEDS ORDERED: ATORVASTATIN 80 MG TAB PO SCH (21:00)
--- NOTE | 2016-11-20 08:14 | DS ---
DATE OF ADMISSION: 11/15/2016 DATE OF DISCHARGE: 11/18/2016 FINAL DIAGNOSES: 1. Unstable angina. Patient with recent acute ST elevation myocardial infarction with intervention to the left anterior descending artery. At this time had a successful stenting to the first obtuse marginal. 2. Acute ST elevation myocardial infarction anterior wall on 10/26/16. 3. Diabetes mellitus, type 2, on oral hypoglycemic. 4. Essential hypertension. 5. Hyperlipidemia. 6. Emphysema in an ex-smoker. 7. Ischemic cardiomyopathy, ejection fraction 35% to 40%. HOSPITAL COURSE: He was recently in the hospital presented with further chest pain, further intervention was carried out as above. Upon discharge, patient up and about. No further chest pain. A 2-D echocardiogram showed EF of 35% to 40%. ON EXAM: LUNGS: Slightly decreased breath sounds. CARDIOVASCULAR: First and second sounds are normal. CONSULTATION: Dr. Dc Marlow from cardiology. DISCHARGE MEDICATIONS: 1. DiaBeta 5 mg p.o. with supper. 2. Janumet one tablet p.o. b.i.d. 3. Aspirin 81 mg a day. 4. Toprol XL 25 mg a day. 5. Nicotine patch. 6. Nitrostat 0.4 sublingual q.5 p.r.n. 7. Effient 10 mg p.o. daily. 8. Aldactone 25 mg a day. 9. Lipitor 80 mg p.o. q.h.s. 10. Zestril 5 mg a day. Follow up with Dr. Villasenor in one week. Follow up with Dr. Dc Marlow in one week.
== END 2016-11-18 18:01 | disposition home or self-care (01) | DRG 247 ==
LOC: EC 06:16 → SUPCPDRO 06:16 → 6SEL 09:05
PROVIDERS: ADMIT Hospitalist; ATTEND Hospitalist
PROC: 02JA3ZZ Inspection of Heart, Percutaneous Approach (ICD-10-PCS; 2016-11-15)
PROC: B2111ZZ Fluoroscopy of Multiple Coronary Arteries using Low Osmolar Contrast (ICD-10-PCS; principal; 2016-11-15 09:52)
PROC: 027034Z Dilation of Coronary Artery, One Artery with Drug-eluting Intraluminal Device, Percutaneous Approach (ICD-10-PCS; 2016-11-15 09:52)
DX: I22.2 Subsequent non-ST elevation (NSTEMI) myocardial infarction (principal); I10 Essential (primary) hypertension; I21.09 ST elevation (STEMI) myocardial infarction involving other coronary artery of anterior wall; I25.110 Atherosclerotic heart disease of native coronary artery with unstable angina pectoris; E11.9 Type 2 diabetes mellitus without complications; J43.9 Emphysema, unspecified; Z82.49 Family history of ischemic heart disease and other diseases of the circulatory system; I25.5 Ischemic cardiomyopathy; E78.5 Hyperlipidemia, unspecified; Z95.5 Presence of coronary angioplasty implant and graft; Z86.19 Personal history of other infectious and parasitic diseases; Z87.891 Personal history of nicotine dependence; Z79.82 Long term (current) use of aspirin; Z79.84 Long term (current) use of oral hypoglycemic drugs; Z79.02 Long term (current) use of antithrombotics/antiplatelets; Z79.899 Other long term (current) drug therapy
CPT/HCPCS: 36415; 71020; 80048; 80053; 80061; 82550; 82553; 83036; 83735; 84484; 85025; 85610; 85730; 93005; 93306; 93458; 96374; 99285